=== PATIENT | female | born 1950 | race Caucasian/White ===

== ENCOUNTER 2016-12-23 08:44 | Inpatient (IN) ==
[2016-12-23] MEDS ORDERED: NS 1,000 ML IV ONE (09:15)
--- NOTE | 2016-12-23 09:22 | PROVIDER DOCUMENTATION ---
HPI-Neurological Disorder - General Chief Complaint: Altered Mental Status Stated Complaint: AMS Time Seen by Provider: 12/23/16 08:57 Source: patient, family Allergies/Adverse Reactions: Patient Allergies Allergy/AdvReac Type Severity Reaction Status Date / Time codeine [Codeine] Allergy NAUSEA/VOMI Verified 12/23/16 08:59 TING Home Medications: Home Medication List Medication Instructions Recorded Confirmed Last Taken Type Allopurinol [Zyloprim] 300 mg PO QAM 12/07/12 12/23/16 12/22/16 History Aspirin 81 mg PO BID 12/07/12 12/23/16 12/22/16 History Carvedilol [Coreg] 25 mg PO BID 12/07/12 12/23/16 12/22/16 History Cyclobenzaprine [Flexeril] 10 mg PO HS 12/07/12 12/23/16 12/22/16 History Doxepin [Sinequan] 100 mg PO DAILY 12/07/12 12/23/16 12/22/16 History Enalapril Maleate [Vasotec] 2.5 mg PO BID 12/07/12 12/23/16 12/22/16 History Folic Acid 800 gm MC DAILY 12/07/12 12/23/16 12/22/16 History Glimepiride [Amaryl] 4 mg PO BID 12/07/12 12/23/16 12/22/16 History Isosorbide Dinitrate 20 mg PO HS 12/07/12 12/23/16 12/22/16 History Lamotrigine [Lamictal] 100 mg PO QHS 12/07/12 12/23/16 12/22/16 History Meloxicam [Mobic] 7.5 mg PO DAILY 12/07/12 12/23/16 12/22/16 History Metformin [Glucophage] 500 mg PO BID CC 12/07/12 12/23/16 12/22/16 History NPH, Human Insulin Isophane 68 unit SQ BID 12/07/12 12/23/16 12/22/16 History [Novolin N] [place]-3/Dha/Epa/Fish Oil [[place]-3 1,200 mg PO BID 12/07/12 12/23/16 12/22/16 History Fish Oil 1,200 mg Sfgl] Paroxetine [Paxil] 20 mg PO DAILY 12/07/12 12/23/16 12/22/16 History Pioglitazone HCl [Actos] 45 mg PO DAILY 12/07/12 12/23/16 12/22/16 History Ziprasidone [Geodon] 80 mg PO QPM 12/07/12 12/23/16 12/22/16 History Bupropion HCl [Wellbutrin Xl] 300 mg PO DAILY 10/24/14 12/23/16 12/22/16 History Bupropion S.r. [Wellbutrin Sr] 150 mg PO DAILY 10/24/14 12/23/16 12/22/16 History Clobetasol Propionate/Emoll 1 applicatn TP BID PRN 10/24/14 12/23/16 12/22/16 History [Clobetasol Emollient 0.05% Crm] Digoxin 250 mcg PO DAILY 10/24/14 12/23/16 12/22/16 History Gabapentin [Neurontin] 300 mg PO TID 10/24/14 12/23/16 12/22/16 History Mirtazapine [Remeron] 15 mg PO QHS 10/24/14 12/23/16 12/22/16 History Omeprazole [Prilosec] 20 mg PO DAILY@0700 10/24/14 12/23/16 12/22/16 History Alprazolam [Xanax] 1 mg PO QHS 11/28/15 12/23/16 12/22/16 History Calcium Citrate 630 mg MC DAILY 11/28/15 12/23/16 12/22/16 History Ezetimibe/Simvastatin [Vytorin 1 each PO DAILY 11/28/15 12/23/16 12/22/16 History 10-40 mg Tablet] Hydrocodone/Acetaminophen [[place] 1 each PO 4XDAY 11/28/15 12/23/16 12/22/16 History 7.5-325 Tablet] Multivitamins/Minerals [Centrum 1 each PO DAILY 11/28/15 12/23/16 12/22/16 History Silver] Furosemide 40 mg PO BID #60 12/03/15 12/23/16 12/22/16 Rx - History of Present Illness-Neuro Nature of Presenting Problem: Patient is a 66 y/o F that presents to the ER with 2 to 3 days of confusion, weakness. Patient's reports patient having more difficulty ambulating. He also reports confusion and urinary issues( not getting the whole stream out and hematuria for a few days). patient denies any cough/congestion, n/v/d, or chest pain. Patient's blood sugar register high per EMS Severity: reports: moderate Onset/Duration: reports: gradual, 2 days ago, 3 days ago Timing: reports: still present, improving Context: reports: falling, other (high blood sugar). denies: low blood sugar, recent infection, fever, impaired speech, paresthesia, facial droop Character of Altered Mental Status: reports: confused Any recent trauma/injury?: reports: none Character of Deficits: reports: new weakness, falling New weakness or altered sensation location:: reports: general (diffuse) Cognitive Baseline: alert, oriented x3 Gait Baseline: uses a walker Associated Symptoms: reports: confusion, weakness. denies: short of breath, headache, dizziness, fever/chills, loss of consciousness, nausea, seizures, sleepy, slurred speech, vomiting Recently seen or treated by another doctor?: No Review of Systems - Adult - REVIEW OF SYSTEMS - ADULT Constitutional: denies: chills, fever Eyes: denies: decreased vision, blurred vision, double vision Ears, Nose, Mouth & Throat: reports: no symptoms reported Cardiovascular: denies: chest pain, palpitations, syncope Respiratory: denies: cough, shortness of breath, wheezing Gastrointestinal: denies: abdominal pain, diarrhea, nausea, vomiting Genitourinary: reports: hesitency. denies: dysuria, frequency, urgency Musculoskeletal: denies: back pain, joint pain, neck pain Integumentary: reports: no symptoms reported Neurological: reports: other (ams, confusion). denies: dizziness/vertigo, headache/migraines, seizure Psychiatric: reports: no symptoms reported Endocrine: reports: no symptoms reported Hematologic/Lymphatic: reports: no symptoms reported Allergic/Immunologic: reports: no symptoms reported All Other Systems: Reviewed and Negative Past History - Adult - PAST MEDICAL HISTORY-ADULT Review of Records: reports: Old Records Reviewed, Nursing Assessment Review, Medications Reviewed Cardiovascular: reports: CAD, CHF, HTN, hyperlipidemia, [place] Musculoskeletal: reports: chronic pain, fibromyalgia, intervertebral disc disease Psychiatric: reports: bipolar, psychiatric problems Endocrine/Immune: reports: Diabetes Other Conditions: reports: psoriasis - PRIOR SURGERIES/PROCEDURES Surgical/Procedure History: reports: cholecystectomy, cardiac stent, breast ( biopsy), other (cataract) - IMMUNIZATION STATUS Childhood Immunizations: UTD Flu Vaccine: See Nurse Assessment - FAMILY HISTORY Family History: reviewed, not pertinent - SOCIAL HISTORY Smoking: quit greater than 1 year, cigarettes Living Situation: family Physical Exam- Neurological - Physical Exam-Neuro Exam Limited by: obesity Initial Vital Signs Reviewed: Yes General Appearance: alert, no apparent distress, obese Eye Exam: bilateral eye: normal inspection, PERRL HENMT: normocephalic/atraumatic, moist mucous membranes, normal ENT inspection Head Injury: no evidence of injury. negative: Talbot's Sign, ecchymosis, lacerations Neck: non-tender, full range of motion, normal inspection Respiratory: lungs clear, normal breath sounds, no respiratory distress, no accessory muscle use Cardiovascular: regular rate, rhythm, no edema, no murmur Abdominal Exam: normal bowel sounds, non tender, soft, no organomegaly, no pulsatile mass Extremity: normal inspection, no pedal edema, normal capillary refill, pelvis stable snailer Exam: normal hearing, normal speech, PERRL Motor/Sensory: no motor deficit, no sensory deficit Neurologic: snailer II-XII nml as tested, no motor/sensory deficits Integumentary: normal color, normal turgor, warm/dry Psych/Mental Status: normal mood/affect, normal thought content, normal thought process, oriented x 3 - Glascow Coma Scale Best Eye Response: (4) open spontaneously Best Verbal Response: (5) oriented Best Motor Response: (6) obeys commands Total Glascow Score: 15 Progress - PLAN OF CARE/RESULTS Progress/Plan/Lab Results: plan of care-labs, ekg, cxr, head ct, fluids 0942-due to abnormal abg, BiPap will be ordered for patient, RT called Vital Signs Temp Pulse Resp BP Pulse Ox 12/23/16 10:51 100 12/23/16 09:19 94 L 12/23/16 08:52 97.7 F 98 H 20 133/86 88 L codeine [Codeine] Allergy (Verified 12/23/16 08:59) NAUSEA/VOMITING Allopurinol [Zyloprim] 300 mg PO QAM 12/07/12 Aspirin 81 mg PO BID 12/07/12 Carvedilol [Coreg] 25 mg PO BID 12/07/12 Cyclobenzaprine [Flexeril] 10 mg PO HS 12/07/12 Doxepin [Sinequan] 100 mg PO DAILY 12/07/12 Enalapril Maleate [Vasotec] 2.5 mg PO BID 12/07/12 Folic Acid 800 gm MC DAILY 12/07/12 Glimepiride [Amaryl] 4 mg PO BID 12/07/12 Isosorbide Dinitrate 20 mg PO HS 12/07/12 Lamotrigine [Lamictal] 100 mg PO QHS 12/07/12 Meloxicam [Mobic] 7.5 mg PO DAILY 12/07/12 Metformin [Glucophage] 500 mg PO BID CC 12/07/12 NPH, Human Insulin Isophane [Novolin N] 68 unit SQ BID 12/07/12 Delphos-3/Dha/Epa/Fish Oil [[place]ph[place]-3 Fish Oil 1,200 mg Sfgl] 1,200 mg PO BID Paroxetine [Paxil] 20 mg PO DAILY 12/07/12 Pioglitazone HCl [Actos] 45 mg PO DAILY 12/07/12 Ziprasidone [Geodon] 80 mg PO QPM 12/07/12 Bupropion HCl [Wellbutrin Xl] 300 mg PO DAILY 10/24/14 Bupropion S.r. [Wellbutrin Sr] 150 mg PO DAILY 10/24/14 Clobetasol Propionate/Emoll [Clobetasol Emollient 0.05% Crm] 1 applicatn TP BID PRN 10/24/14 Digoxin 250 mcg PO DAILY 10/24/14 Gabapentin [Neurontin] 300 mg PO TID 10/24/14 Mirtazapine [Remeron] 15 mg PO QHS 10/24/14 Omeprazole [Prilosec] 20 mg PO DAILY@0700 10/24/14 Alprazolam [Xanax] 1 mg PO QHS 11/28/15 Calcium Citrate 630 mg MC DAILY 11/28/15 Ezetimibe/Simvastatin [Vytorin 10-40 mg Tablet] 1 each PO DAILY 11/28/15 Hydrocodone/Acetaminophen [[place] 7.5-325 Tablet] 1 each PO 4XDAY 11/28/15 Multivitamins/Minerals [Centrum Silver] 1 each PO DAILY 11/28/15 Furosemide 40 mg PO BID #60 12/03/15 I&O 12/22/16 12/23/16 12/24/16 06:59 06:59 06:59 Output Total 25 Balance -25 Laboratory 12/23/16 12/23/16 12/23/16 09:50 09:50 09:45 WBC RBC Hgb Hct MCV MCH MCHC RDW Std Deviation Plt Count MPV Immature Gran % (Auto) Neut % (Auto) Lymph % (Auto) [place] % (Auto) Eos % (Auto) Baso % (Auto) Immature Gran # (Auto) Neut # (Auto) Lymph # (Auto) [place] # (Auto) Eos # (Auto) Baso # (Auto) PT INR PTT (Actin FS) Specimen Type Sample Site pH pCO2 pO2 HCO3 Base Excess Oxyhemoglobin ABG O2 Sat (Calculated) ABG O2 Saturation ABG Carboxyhemoglobin ABG Methemoglobin Yaniv Test Total Hemoglobin Lactate Liter Flow Blood Gas Modality Sodium Potassium Chloride Carbon Dioxide Anion Gap BUN Creatinine Estimated GFR/1.73 m2 BUN/Creatinine Ratio Glucose POC Glucose Calculated Osmolality Calcium Magnesium Total Bilirubin AST ALT Alkaline Phosphatase Creatine Kinase Troponin T < 0.010 [id number] Pept Total Protein Albumin Globulin Albumin/Globulin Ratio Lipase Urine Source CLEAN CATCH Urine Color YELLOW Urine Turbidity CLEAR Urine pH 6.5 Ur Specific [place] 1.011 Urine Protein TRACE A Ur Glucose (Stick) NEGATIVE Ur Ketones (Stick) NEGATIVE Urine Blood NEGATIVE Urine Nitrite NEGATIVE Urine Bilirubin NEGATIVE Urobilinogen Dipstick NORMAL Urine Leukocytes LARGE A Urine WBC (Auto) TNTC A Urine RBC (Auto) <10 U Epithel Cells (Auto) >10 A Urine Bacteria (Auto) NEGATIVE Urine Opiates Screen NONE DETECTED Ur Oxycodone Screen PRESUMPTIVE POSITIVE A Ur Methadone, Qual NONE DETECTED Ur Barbiturates Screen NONE DETECTED Ur Phencyclidine Scrn NONE DETECTED Ur Amphetamines Screen NONE DETECTED U Benzodiazepines Scrn PRESUMPTIVE POSITIVE A Urine Cocaine Screen NONE DETECTED U Cannabinoids Screen NONE DETECTED Plasma/Serum Ethyl Alc 12/23/16 12/23/16 12/23/16 09:45 09:45 09:45 WBC 4.72 L RBC 3.77 L Hgb 11.7 L Hct 37.3 MCV 98.9 MCH 31.0 MCHC 31.4 L RDW Std Deviation 13.9 Plt Count 115 L MPV 9.7 Immature Gran % (Auto) 0.6 H Neut % (Auto) 50.5 Lymph % (Auto) 36.2 [place]son % (Auto) 9.3 Eos % (Auto) 3.0 Baso % (Auto) 0.4 Immature Gran # (Auto) 0.03 Neut # (Auto) 2.38 Lymph # (Auto) 1.71 Anson # (Auto) 0.44 Eos # (Auto) 0.14 Baso # (Auto) 0.02 PT 10.6 INR 1.04 PTT (Actin FS) 51.9 H Specimen Type Sample Site pH pCO2 pO2 HCO3 Base Excess Oxyhemoglobin ABG O2 Sat (Calculated) ABG O2 Saturation ABG Carboxyhemoglobin ABG Methemoglobin Yaniv Test Total Hemoglobin Lactate Liter Flow Blood Gas Modality Sodium Potassium Chloride Carbon Dioxide Anion Gap BUN Creatinine Estimated GFR/1.73 m2 BUN/Creatinine Ratio Glucose POC Glucose Calculated Osmolality Calcium Magnesium Total Bilirubin AST ALT Alkaline Phosphatase Creatine Kinase Troponin T [id number]-Xticplrizdl Pept Total Protein Albumin Globulin Albumin/Globulin Ratio Lipase Urine Source Urine Color Urine Turbidity Urine pH Ur Specific [place] Urine Protein Ur Glucose (Stick) Ur Ketones (Stick) Urine Blood Urine Nitrite Urine Bilirubin Urobilinogen Dipstick Urine Leukocytes Urine WBC (Auto) Urine RBC (Auto) U Epithel Cells (Auto) Urine Bacteria (Auto) Urine Opiates Screen Ur Oxycodone Screen Ur Methadone, Qual Ur Barbiturates Screen Ur Phencyclidine Scrn Ur Amphetamines Screen U Benzodiazepines Scrn Urine Cocaine Screen U Cannabinoids Screen Plasma/Serum Ethyl Alc 12/23/16 12/23/16 12/23/16 09:45 09:45 09:35 WBC RBC Hgb Hct MCV MCH MCHC RDW Std Deviation Plt Count MPV Immature Gran % (Auto) Neut % (Auto) Lymph % (Auto) [place]son % (Auto) Eos % (Auto) Baso % (Auto) Immature Gran # (Auto) Neut # (Auto) Lymph # (Auto) [place] # (Auto) Eos # (Auto) Baso # (Auto) PT INR PTT (Actin FS) Specimen Type ARTERIAL Sample Site R BRACHIAL pH 7.37 pCO2 64 H* pO2 67 HCO3 32.5 H Base Excess 9.8 H Oxyhemoglobin 92.5 L ABG O2 Sat (Calculated) 14.1 L ABG O2 Saturation 96.7 ABG Carboxyhemoglobin 3.10 H ABG Methemoglobin 1.2 Yaniv Test NO Total Hemoglobin 10.8 L Lactate 0.50 Liter Flow 2.0 Blood Gas Modality CANNULA Sodium 136 Potassium 5.4 H Chloride 96 L Carbon Dioxide 30 Anion Gap 10 BUN 20 Creatinine 1.3 H Estimated GFR/1.73 m2 41 BUN/Creatinine Ratio 15 Glucose 207 H POC Glucose Calculated Osmolality 281 Calcium 9.1 Magnesium 2.0 Total Bilirubin 0.26 AST 71 H ALT 138 H Alkaline Phosphatase 350 H Creatine Kinase 47 Troponin T [id number] Pept 526 H Total Protein 6.3 Albumin 3.1 L Globulin 3.2 Albumin/Globulin Ratio 1.0 Lipase 44 Urine Source Urine Color Urine Turbidity Urine pH Ur Specific [place] Urine Protein Ur Glucose (Stick) Ur Ketones (Stick) Urine Blood Urine Nitrite Urine Bilirubin Urobilinogen Dipstick Urine Leukocytes Urine WBC (Auto) Urine RBC (Auto) U Epithel Cells (Auto) Urine Bacteria (Auto) Urine Opiates Screen Ur Oxycodone Screen Ur Methadone, Qual Ur Barbiturates Screen Ur Phencyclidine Scrn Ur Amphetamines Screen U Benzodiazepines Scrn Urine Cocaine Screen U Cannabinoids Screen Plasma/Serum Ethyl Alc 12/23/16 08:51 WBC RBC Hgb Hct MCV MCH MCHC RDW Std Deviation Plt Count MPV Immature Gran % (Auto) Neut % (Auto) Lymph % (Auto) [place] % (Auto) Eos % (Auto) Baso % (Auto) Immature Gran # (Auto) Neut # (Auto) Lymph # (Auto) [place] # (Auto) Eos # (Auto) Baso # (Auto) PT INR PTT (Actin FS) Specimen Type Sample Site pH pCO2 pO2 HCO3 Base Excess Oxyhemoglobin ABG O2 Sat (Calculated) ABG O2 Saturation ABG Carboxyhemoglobin ABG Methemoglobin Yaniv Test Total Hemoglobin Lactate Liter Flow Blood Gas Modality Sodium Potassium Chloride Carbon Dioxide Anion Gap BUN Creatinine Estimated GFR/1.73 m2 BUN/Creatinine Ratio Glucose POC Glucose 239 H Calculated Osmolality Calcium Magnesium Total Bilirubin AST ALT Alkaline Phosphatase Creatine Kinase Troponin T [id number] Pept Total Protein Albumin Globulin Albumin/Globulin Ratio Lipase Urine Source Urine Color Urine Turbidity Urine pH Ur Specific [place] Urine Protein Ur Glucose (Stick) Ur Ketones (Stick) Urine Blood Urine Nitrite Urine Bilirubin Urobilinogen Dipstick Urine Leukocytes Urine WBC (Auto) Urine RBC (Auto) U Epithel Cells (Auto) Urine Bacteria (Auto) Urine Opiates Screen Ur Oxycodone Screen Ur Methadone, Qual Ur Barbiturates Screen Ur Phencyclidine Scrn Ur Amphetamines Screen U Benzodiazepines Scrn Urine Cocaine Screen U Cannabinoids Screen Plasma/Serum Ethyl Alc Orders Category Date Time Status Cardiac Monitoring DIRECTED Care 12/23/16 09:16 Active Finger Stick Blood Sugar (ED) DIRECTED Care 12/23/16 09:16 Active Oxygen Therapy- ED Nursing DIRECTED Care 12/23/16 09:16 Active Saline Loc NOW Care 12/23/16 09:16 Active CHEST-PORTABLE [RAD] Stat Exams 12/23/16 09:19 Draft HEAD W/O CONTRAST [CT] Stat Exams 12/23/16 09:20 Draft ABG [RESP] Routine Lab 12/23/16 09:35 Completed ALCOHOL BLOOD Stat Lab 12/23/16 09:45 Completed CBC WITH ELECTRONIC DIFF [HEME] Stat Lab 12/23/16 09:45 Completed CK PROFILE [SP CHEM] Stat Lab 12/23/16 09:45 Completed COMPREHENSIVE METABOLIC PANEL [CHEM] Stat Lab 12/23/16 09:45 Completed LIPASE [CHEM] Stat Lab 12/23/16 09:45 Completed MAGNESIUM [CHEM] Stat Lab 12/23/16 09:45 Completed PRO B-NATRIURETIC PEPTIDE Stat Lab 12/23/16 09:45 Completed PROTIME WITH INR [COAG] Stat Lab 12/23/16 09:45 Completed PTT [COAG] Stat Lab 12/23/16 09:45 Completed TROPONIN T Stat Lab 12/23/16 09:45 Completed URINALYSIS W/POSS RFLX CULT [URINALYSIS] Stat Lab 12/23/16 09:50 Completed URINE CULTURE [RM] Routine Lab 12/23/16 10:17 Received URINE DRUG SCREEN Stat Lab 12/23/16 09:50 Completed 0.9% Sodium Chloride Inj [Ns] 1,000 ml Med 12/23/16 09:15 Active IV 250 mls/hr CefTRIAXONE 1 GM/NS [Rocephin 1 gm/Ns] 50 ml Med 12/23/16 11:06 Discontinued IV NOW BIPAP Stat Oth 12/23/16 10:07 Active Pulse Oximetry Stat Oth 12/23/16 09:16 Completed EKG [EKG] Stat Ther 12/23/16 09:16 Ordered pt accepted to hospitalist service - XRAY 1 XRAY Study: Chest Impression: Abnormal XRAY Interpretation: nad, low lung volumes, bibasilar crowding - CT/MRI 1 CT Study: Head Impression: Abnormal CT Results: chronic white matter changes, no acute disease - CONSULTS/PCP/HOSPITALIST Notification #1 *Consult/PCP/Hospitalist*: ( occupational therapy aide for hospitalist) Time Discussed: 11:54 Reason/Comments: AMS, UTI, CO2 retention Consult Disposition: Will see in ED, Admit Departure - Departure Time of Disposition Order: 11:56 DIAGNOSIS: CO2 retention UTI (urinary tract infection) Qualifiers: Urinary tract infection type: acute cystitis Hematuria presence: without hematuria Qualified Code(s): N30.00 - Acute cystitis without hematuria Altered mental status Qualifiers: Altered mental status type: unspecified Qualified Code(s): R41.82 - Altered mental status, unspecified Disposition: ADMITTED INPATIENT 09 Certified Medical Emergency: Emergent Condition: Stable - Critical Care Note Total Time (mins): 45 Critical Care Statement: This patient required my direct personal management to treat or rule out processes, the absence of which, could potentiallly result in sudden, clinically significant life or limb threatening deterioration. Attestation - Scribe Verification/Attestation Scribe:: Jerry Arita Acting as Scribe for:: Cristian Biswas Scribe documention review:: This chart was documented by a scribe and accurately reflects the service the provider performed and the decisions made by the provider. Physician Attestation - Physician Attestation I, the provider, attest to the following statement:: Cristian Biswas Physician documentation Attestation:: This documentation recorded by the scribe accurately reflects the service I personally performed and the decisions made by me.
[2016-12-23 09:41] LABS: ALLEN TEST NO; BE 9.8 mmoll (-3.0-3.0); BLOOD TYPE ARTERIAL; DRAW SITE R BRACHIAL; METHB 1.2 % (0.0-1.5); O2(CT) 14.1 mL/dL (15.0-23.0); PO2(98.6) 67 mmHg (60-100); SAMPLE BLOOD; SAO2 96.7 % (95.0-100.0); THB 10.8 g/dL (11.5-17.4); pH(98.6) 7.37 (7.35-7.45)
[2016-12-23 09:43] LABS: MODALITY CANNULA; PCO2(98.6) 64 mmHg (35-45)
[2016-12-23 09:57] LABS: MANUAL DIFF NEEDED? NO
[2016-12-23 10:00] LABS: URINE MICRO REVIEW NEEDED? NO; URINE SOURCE CLEAN CATCH
[2016-12-23 10:01] LABS: BASO% 0.4 % (0.0-0.8); EOS# 0.14 X1000 (0.0-0.7); HEMATOCRIT 37.3 % (37.0-47.0); HEMOGLOBIN 11.7 g/dL (12.0-16.0); IMM GRAN# 0.03 X1000 (0.0-0.04); IMM GRAN% 0.6 % (0.0-0.5); LYMPH# 1.71 X1000 (1.2-3.4); LYMPH% 36.2 % (20.5-51.1); MCHC 31.4 g/dL (33-37); MCV 98.9 FL (81-99); MONO# 0.44 X1000 (0.11-0.59); MONO% 9.3 % (1.7-9.3); MPV 9.7 FL (7.4-10.4); NEUT% 50.5 % (42.2-75.2); PLT 115 X1000 (130-400); RBC 3.77 XMIL (4.2-5.4)
[2016-12-23 10:09] LABS: BILIRUBIN URINE NEGATIVE (NEGATIVE); BLOOD URINE NEGATIVE (NEGATIVE); COLOR YELLOW; GLUCOSE URINE NEGATIVE (NEGATIVE); LEUKOCYTES URINE LARGE (NEGATIVE); NITRITE URINE NEGATIVE (NEGATIVE); PH URINE 6.5; PROTEIN URINE TRACE mg/dL (NEGATIVE); SP GRAVITY URINE 1.011; TURBIDITY URINE CLEAR (CLEAR); UROBILINOGEN URINE NORMAL (NORMAL)
[2016-12-23 10:10] LABS: UR EPITHELIAL CELLS >10 /HPF (<10); URINE BACTERIA NEGATIVE /HPF; URINE CULTURE NEEDED? YES; URINE RBC <10 /HPF (<10); URINE WBC TNTC /HPF (<10)
[2016-12-23 10:14] LABS: INR 1.04; PROTIME 10.6 Seconds (9.2-11.7); PTT 51.9 Seconds (22.0-36.0)
[2016-12-23 10:20] LABS: ALBUMIN 3.1 g/dL (3.5-5.0); CALCIUM 9.1 mg/dL (8.8-10.2); POTASSIUM 5.4 mmol/L (3.5-5.1); TOTAL BILIRUBIN 0.26 mg/dL (0.20-1.00); TOTAL PROTEIN 6.3 g/dL (6.3-8.3)
--- NOTE | 2016-12-23 10:54 | Diag Imaging Result Document ---
PROCEDURE NAME: HEAD W/O CONTRAST - 12/23/[address], 12/23/2016: A CT dose reduction protocol was used. COMPARISON: 11/28/2015. FINDINGS: The ventricles and sulci are normal in size and contour. There is some mild patchy deep white matter lucency similar to prior exams compatible with chronic microvascular disease. No intracranial mass or hemorrhage. The skull is intact. The sinuses, mastoids , and middle ears are clear. IMPRESSION: No specific acute disease. [facility]
--- NOTE | 2016-12-23 11:02 | Diag Imaging Result Document ---
PROCEDURE NAME: CHEST-PORTABLE - 12/23/2016 PORTABLE CHEST X-RAY: COMPARISON: 12/01/2015. FINDINGS: Lung volumes are low with some bibasilar crowding. No obvious infiltrates. Heart size is top normal. No pneumothorax or large effusion. IMPRESSION: No acute disease.
[2016-12-23] MEDS ORDERED: ROCEPHIN 1 GM/NS 50 ML IV ONE (11:06)
[2016-12-23 11:19] LABS: UR AMPHETAMINES QUAL NONE DETECTED (NONE DETECT); UR BARBITUATES QUAL NONE DETECTED (NONE DETECT); UR BENZODIAZEPIN QUAL PRESUMPTIVE POSITIVE (NONE DETECT); UR CANNABINOIDS QUAL NONE DETECTED (NONE DETECT); UR COCAINE QUAL NONE DETECTED (NONE DETECT); UR METHADONE QUAL NONE DETECTED (NONE DETECT); UR OPIATES QUAL NONE DETECTED (NONE DETECT); UR OXYCODONE QUAL PRESUMPTIVE POSITIVE (NONE DETECT); UR PCP QUAL NONE DETECTED (NONE DETECT)
--- NOTE | 2016-12-23 15:00 | HISTORY AND PHYSICAL ---
PRIMARY CARE PROVIDER: Betsy Benedict. CHIEF COMPLAINT: Confusion with hallucinations, slurred speech, and shortness of breath. HISTORY OF PRESENT ILLNESS: Ms. Lety Allen is a 66-year-old female with a history of bipolar disorder, hypothyroidism, diabetes mellitus type 2, coronary artery disease, with what she states is frequent admissions for hypomagnesemia. Has been for the last couple of days been having increased confusion, slurred speech, hallucinations, and it got worse last night. She has also been having shortness of breath. Denies any drowsiness, nausea, vomiting, diarrhea. Denies fever or chills. So workup revealed that she has a CO2 level of 64 and that was on 2 L nasal cannula. They placed her on BiPAP. She states that she has never had a history of COPD, but has smoked 1 pack per day for 50 years and quit in 2001. She also states that in the past she has been admitted for confusion and altered mental status secondary to hypomagnesemia and it does show that she has had magnesium levels anywhere from 1.0 to 1.5 in the past, then on admit she is 2.0. Head CT was negative. Chest x-ray is also negative. Her white count is normal at 4000, so given elevated CO2 level, she is in for COPD exacerbation. This could be cause of confusion or it could be the multiple medications that she takes at home. She is on several medications, such Geodon, Paxil, doxepin, Wellbutrin, Remeron, Xanax, and Green[place]. Some of these medications may need to be titrated down. Will admit her to [facility] given her need for BiPAP, and consult Pulmonology. PAST MEDICAL HISTORY: Coronary artery disease with an ID in 2001 with 3 cardiac stent, diabetes mellitus type 2, hypertension, hyperlipidemia, fibromyalgia, bipolar disorder, hypothyroidism, now with a newly diagnosed COPD, gout, psoriasis, and questionable congestive heart failure, CKD stage 2. SURGICAL HISTORY: Cardiac stents x3 to the mid LAD and proximal LAD. Cholecystectomy. Back surgery, and right ankle pins. FAMILY HISTORY: Had a sister that from alcoholism. SOCIAL HISTORY: Quit smoking in 2001 but prior to that was a 1 pack per day smoker for 50+ years. She lives at home with her . Denies alcohol or illicit drug use. ALLERGIES: Are listed as codeine but the patient states she is not allergic to codeine, so no known drug allergies. HOME MEDICATIONS: Amaryl, aspirin, Coreg, Vasotec, Flexeril, folic acid, Geodon, Glucophage, isosorbide dinitrate, Lamictal, Mobic, NPH insulin, omega 3 fish oil, Paxil, Actos, Sinequan, allopurinol, clobetasol propionate emollient, digoxin, Remeron, Neurontin, Prilosec, Wellbutrin, Xanax, calcium citrate, Centrum Silver multivitamin, Vytorin, Greencastle 7.5, and furosemide. REVIEW OF SYSTEMS: Fourteen point review of systems are complete and all were negative except those mentioned above in HPI. LABORATORY DATA: White blood cells 4000, hemoglobin 11, hematocrit 37, platelet count 115,000, INR 1.04, PTT 51.9. ABGs on 2 L; 7.37 pH, CO2 64, PO2 67, base excess 9, oxyhemoglobin 92%, lactate 0.5. Sodium 136, potassium 5.4, BUN 20, creatinine is 1.3. Glucose 207, calcium 9.1, magnesium 2.0, total bilirubin 0.26, AST 71, ALT 138. CK 47, troponin 0.01, proBNP 526. Albumin 3.1. Urinalysis; trace protein, large leukocytes, too numerous to count white blood cells, negative for bacteria. Urine drug screen positive for oxycodone and benzodiazepines which she has prescriptions for. IMAGING: Chest x-ray negative. Head CT negative. PHYSICAL EXAMINATION: VITAL SIGNS: Temperature 97.7, heart rate 90, respiratory rate 18, blood pressure 157/93, O2 saturation 100% on BiPAP. GENERAL APPEARANCE: Ms. Allen is a 66-year-old female. She is in no acute distress but currently on BiPAP. She is able answer all questions appropriately. HEENT: Atraumatic, normocephalic. Pupils equal, round, reactive to light. Her extraocular movements were intact. Mucous membranes were dry. NECK: No JVD or carotid bruits. CARDIOVASCULAR: S1, S2. Regular rate and rhythm. No rubs, gallops, or murmurs. PULMONARY: She is actually clear to auscultate. Bilateral breath sounds, decreased in the bases. No accessory muscle use. Mild prolonged expiration. Currently on BiPAP GASTROINTESTINAL: Soft, nontender, nondistended. Positive bowel sounds x4. She is obese. EXTREMITIES: No edema noted. +2 dorsalis and radial pulses. NEUROLOGIC: She is oriented x3. Moved all extremities equally. SKIN: Warm, dry, intact. She did have a small abrasion to the left forearm that she had a Band- Aid on. ASSESSMENT AND PLAN: 1. Newly diagnosed chronic obstructive pulmonary disease exacerbation and acute hypercarbic respiratory failure. Continue with BiPAP. She has received IV steroids, prophylactic Rocephin, pulmonary consult. Will do albuterol and Atrovent nebulizers with acetylcysteine and budesonide neb, and aggressive pulmonary toilet. 2. Confusion. She does a history of bipolar and takes several medications, some of these may need to be down titrated. 3. History of coronary artery disease. No current complications. 4. Gout. Continue home medications. 5. Psoriasis. Continue home medication. 6. Hyperlipidemia. Continue statin. 7. She does have some transaminitis but she will receive IV fluid hydration for now. 8. Hypertension. Continue home medications. 9. Hypothyroidism. This is questionable. She is not on any medications for this, so we will do a TSH, T4. 10. Questionable history of congestive heart failure. She is on several medications that would be for it, like digoxin. This could be heart rate control but she did not mention that she has a heart rate problem. She is on isosorbide, this could be for history of chest pain. She is on Coreg and Vasotec. Looking back for a history of a recent echocardiogram she had performed on November of last year, mild right atrium enlargement, mild to moderate tricuspid regurgitation, normal systolic function with an ejection fraction of 50%-55%, trace pulmonic insufficiency, mild mitral regurgitation, apical hypokinesis. We will go ahead and repeat an echocardiogram since she is on all of those medications and has been a little over a year. 11. Deep venous thrombosis prophylaxis, Lovenox. 12. Gastrointestinal prophylaxis, proton pump inhibitor. Dictated by YING Green for Alexei Brown MD
[2016-12-23] MEDS ORDERED: NEURONTIN PO SCH (15:32)
[2016-12-23] MEDS ORDERED: NORCO-7.5 PO SCH (15:32)
[2016-12-23] MEDS ORDERED: TYLENOL PO PRN (15:32)
[2016-12-23] MEDS ORDERED: TEMOVATE 0.05% CREAM TOP PRN (15:32)
[2016-12-23] MEDS: NS 1,000 ML IV SCH (17:33)
[2016-12-23] MEDS: NEURONTIN PO SCH ×2 (17:34→21:49)
[2016-12-23] MEDS: PERCOCET-5 PO SCH (17:34)
[2016-12-23] MEDS: HUMULIN N SUBQ SCH (17:34)
[2016-12-23] MEDS: HUMULIN R SUBQ SCH ×2 (17:36→21:49)
[2016-12-23 17:49] LABS: ALLEN TEST NO; BE 9.1 mmoll (-3.0-3.0); BLOOD TYPE ARTERIAL; DRAW SITE R BRACHIAL; METHB 1.6 % (0.0-1.5); O2(CT) 13.8 mL/dL (15.0-23.0); PO2(98.6) 58 mmHg (60-100); SAMPLE BLOOD; SAO2 94.9 % (95.0-100.0); THB 10.7 g/dL (11.5-17.4); pH(98.6) 7.44 (7.35-7.45)
[2016-12-23 17:50] LABS: PCO2(98.6) 51 mmHg (35-45)
[2016-12-23] MEDS: PULMICORT INH SCH (20:05)
[2016-12-23] MEDS: DUONEB (A & A) INH SCH ×2 (20:05→23:09)
[2016-12-23] MEDS: MUCOMYST 20% INH SCH (20:05)
[2016-12-23] MEDS ORDERED: HUMULIN N SUBQ SCH (21:00)
[2016-12-23] MEDS: XANAX PO SCH (21:47)
[2016-12-23] MEDS: ZOCOR PO SCH (21:47)
[2016-12-23] MEDS: LAMICTAL PO SCH (21:49)
[2016-12-23] MEDS: REMERON PO SCH (21:49)
[2016-12-23] MEDS: ISORDIL PO SCH (21:49)
[2016-12-23] MEDS: VASOTEC PO SCH (21:49)
[2016-12-23] MEDS: FLEXERIL PO SCH (21:50)
[2016-12-23] MEDS: ASPIRIN PO SCH (21:50)
[2016-12-23] MEDS: FISH OIL CONCENTRATE PO SCH (21:50)
[2016-12-23] MEDS: GEODON PO SCH (21:50)
[2016-12-23] MEDS: COREG PO SCH (21:50)
[2016-12-24] MEDS: DUONEB (A & A) INH SCH ×6 (03:41→23:13)
[2016-12-24 05:33] LABS: BASO% 0.2 % (0.0-0.8); EOS# 0.32 X1000 (0.0-0.7); EOS% 6.8 % (0.0-10.0); HEMATOCRIT 37.1 % (37.0-47.0); HEMOGLOBIN 11.7 g/dL (12.0-16.0); IMM GRAN# 0.03 X1000 (0.0-0.04); IMM GRAN% 0.6 % (0.0-0.5); LYMPH# 2.21 X1000 (1.2-3.4); LYMPH% 46.6 % (20.5-51.1); MANUAL DIFF NEEDED? YES; MCH 31.3 PG (27-31); MCHC 31.5 g/dL (33-37); MCV 99.2 FL (81-99); MONO# 0.31 X1000 (0.11-0.59); MONO% 6.5 % (1.7-9.3); MPV 10.3 FL (7.4-10.4); NEUT% 39.3 % (42.2-75.2); PLT 148 X1000 (130-400); RBC 3.74 XMIL (4.2-5.4)
[2016-12-24 05:49] LABS: HEMOGLOBIN A1C 7.8 % (4.8-6.0)
[2016-12-24] MEDS: NS 1,000 ML IV SCH (05:51)
[2016-12-24 06:00] LABS: CALCIUM 8.8 mg/dL (8.8-10.2); POTASSIUM 4.8 mmol/L (3.5-5.1); TOTAL BILIRUBIN 0.22 mg/dL (0.20-1.00); TOTAL PROTEIN 6.5 g/dL (6.3-8.3)
[2016-12-24] MEDS: PROTONIX PO SCH (06:01)
[2016-12-24 06:03] LABS: BANDS 4 % (0-1); EOS 4 % (1-10); LYMPHS 40 % (21-51); MONO 4 % (1-9)
[2016-12-24] MEDS: HUMULIN R SUBQ SCH ×4 (06:26→22:53)
[2016-12-24 06:36] LABS: FREE T4 1.04 ng/dL (0.93-1.70)
[2016-12-24] MEDS: PULMICORT INH SCH ×2 (07:29→20:00)
[2016-12-24] MEDS: MUCOMYST 20% INH SCH ×2 (07:29→20:00)
--- NOTE | 2016-12-24 08:13 | ECHO REPORT ---
ORDER DATE: 12/23/2016 INTERPRETING PHYSICIAN: Dr. Higgins REFERRING PHYSICIAN: Hospitalist service. CLINICAL INDICATIONS: A 66-year-old female with shortness of breath. M-MODE MEASUREMENTS: Right ventricle: 3.5 cm. Left ventricle end diastole: 5.4 cm. Left ventricle end systole: 3.9 cm. Posterior wall: 1.0 cm. Interventricular septum: 1.0 cm. Left atrium: 4.7 cm. Aortic root: 3.5 cm. SUMMARY OF 2-DIMENSIONAL IMAGIN. The left ventricular chamber appears to be mildly to moderately enlarged. The left ventricular systolic function appears to be in the order of 46% to 50%. 2. There is anteroapical akinesis consistent with an old anteroapical myocardial infarction. 3. The right ventricle is moderately enlarged. 4. The aortic valve looks normal. There is a mild degree of thickening of the cusps. However, there is no stenosis nor regurgitation. 5. The mitral valve also shows some thickening of the leaflets. Color flow mapping shows a mild degree of regurgitation. Pulsed wave Doppler of mitral inflow shows a mild reversal of the E and the A wave. 6. The tissue Doppler of septal and lateral mitral annulus averages 6.5 cm. There is no definite diastolic dysfunction. The pulsed wave Doppler of pulmonary venous flow is normal. 7. The tricuspid valve shows a mild degree of regurgitation. The inferior vena cava is not dilated. The pulmonary pressure is estimated at 35 mmHg which is borderline elevated. 8. The pulmonic valve shows a mild degree of regurgitation. 9. There is no pericardial effusion, masses, nor thrombus. CONCLUSIONS: In summary, this study shows: 1. Mildly enlarged left ventricle with anteroapical akinesis with ejection fraction closer to 45%. This suggests an old anteroapical myocardial infarction. 2. Thickening of the mitral valve with a mild degree of regurgitation. 3. Diastolic function appears to be normal. 4. Pulmonary systolic pressure at the upper limits of normal. 5. There is also moderate enlargement of the right ventricle. Clinical correlation recommended.
[2016-12-24] MEDS ORDERED: PAXIL PO SCH (09:00)
[2016-12-24] MEDS ORDERED: WELLBUTRIN XL PO SCH (09:00)
[2016-12-24] MEDS ORDERED: VYTORIN 10/40 MG PO SCH (09:00)
[2016-12-24] MEDS: FISH OIL CONCENTRATE PO SCH ×2 (09:21→21:43)
[2016-12-24] MEDS: CALTRATE 600 PO SCH (09:21)
[2016-12-24] MEDS: CENTRUM SILVER PO SCH (09:21)
[2016-12-24] MEDS: FOLIC ACID PO SCH (09:21)
[2016-12-24] MEDS: VASOTEC PO SCH ×2 (09:22→22:57)
[2016-12-24] MEDS: NEURONTIN PO SCH ×4 (09:23→21:49)
[2016-12-24] MEDS: SINEQUAN PO SCH (09:23)
[2016-12-24] MEDS: CYMBALTA PO SCH (09:23)
[2016-12-24] MEDS: COREG PO SCH ×2 (09:24→21:44)
[2016-12-24] MEDS: ZYLOPRIM PO SCH (09:24)
[2016-12-24] MEDS: ASPIRIN PO SCH ×2 (09:24→21:50)
[2016-12-24] MEDS: LASIX PO SCH (09:25)
[2016-12-24] MEDS: LANOXIN PO SCH (09:25)
[2016-12-24] MEDS: MOBIC PO SCH (09:25)
[2016-12-24] MEDS: PERCOCET-5 PO SCH ×3 (09:26→17:34)
[2016-12-24] MEDS: LOVENOX SUBQ SCH (09:27)
[2016-12-24] MEDS: HUMULIN N SUBQ SCH ×2 (09:27→16:30)
[2016-12-24] MEDS: ROCEPHIN 1 GM/NS 50 ML IV SCH (10:56)
--- NOTE | 2016-12-24 14:51 | CONSULTATION ---
DATE OF CONSULTATION: 12/24/2016 REQUESTING PHYSICIAN: Dr. Chang. REASON FOR CONSULTATION: Respiratory failure. HISTORY OF PRESENT ILLNESS: Ms Allen is a 66-year-old white female with morbid obesity, 50 pack- year history for tobacco, and bipolar disorder, who was brought to the emergency room with several day history of dysuria and altered mental status. The patient had evidence of chronic hypercapnia respiratory failure and acute hypoxemic respiratory failure, and was initiated on BiPAP. The patient's urinalysis subsequently revealed nitrites along with too numerous to count white blood cells. The patient is now awake and alert. She reports she has previously been admitted to the hospital with altered mental status, and she had a urinary tract infection at that time. She made the observation that she believes that her bipolar medications are altered if she has an infectious process. She is currently awake, alert and conversant. She reports she has never had a sleep evaluation. She sees a production proofreader and her oxygen saturation routinely is 98% in the office. PAST MEDICAL HISTORY/PROBLEM LIST: 1. Coronary artery disease with 3 cardiac stent placements. 2. Morbid obesity. 3. Type 2 diabetes mellitus. 4. Hypertension. 5. Dyslipidemia. 6. Bipolar disorder. 7. Hypothyroidism. 8. History of gout. 9. Chronic kidney disease. 10. Status post cholecystectomy. 11. History of altered mental status with prior urinary tract infection as per above. SOCIAL HISTORY: Patient has a 50 pack-year history for tobacco, but has not smoked for several years. No alcohol use. FAMILY HISTORY: Positive for alcoholism. REVIEW OF SYSTEMS: Noted in the HPI. Clinically, she feels she is returning toward her baseline. PHYSICAL EXAMINATION: General: Reveals a morbidly obese, white female, with a BMI of 45, BP 126/74, heart rate 78, respiration rate 20, oxygen saturation 100% on 2 L nasal cannula. HEENT: Pupils are equal and reactive. Oropharynx is clear. Neck: Supple. Chest: Reveals minimal crackles in the lung bases. Cardiac Exam: Distant heart sounds. Normal S1, normal S2. Abdomen: Obese and soft without hepatosplenomegaly. Extremities: Reveal trace edema. LABORATORIES: Arterial blood gas on room air this morning reveals pH 7.44, pCO2 of 51, PO2 of 58. Urinalysis reveals trace protein, large amounts of leukocytes, too numerous to count white blood cells. X-RAYS: Chest x-ray reveals shallow inspiration with bibasilar crowding. IMPRESSION: A 66-year-old with morbid obesity, prior tobacco use, chronic hypercapnic respiratory failure, acute hypoxemic respiratory failure, who presented with a urinary tract infection, altered mental status. Clinically, she is awake and alert and follow commands. She appears to be at her baseline. RECOMMENDATIONS: 1. Obtain a PA and lateral chest x-ray for better visualization of the lung bases now that her mental status has resolved. 2. Oxygen as needed to maintain saturation greater than 90%. She may or may not require oxygen at the time of discharge. 3. Recommend weight loss as a long-term goal. 4. Recommend yearly influenza vaccines. 5. Recommend outpatient sleep evaluation.
--- NOTE | 2016-12-24 17:56 | PROGRESS NOTE ---
DATE: 12/24/2016 SUBJECTIVE: This patient looks much better today. She is not using a BiPAP machine. She is using on and off oxygen with nasal cannula, apparently this is her baseline. She came in yesterday because of altered mental status and shortness of breath. She has a UTI. Probably this patient was dehydrated and also this patient is taking a lot of medications. OBJECTIVE: Vital Signs: Temperature 98.7 degrees, pulse 92, respiratory rate 19, blood pressure 126/74, O2 saturation 97% on room air. HEENT: Head normocephalic. No trauma. PERRLA. Neck: Supple. No JVD. No masses. Cardiovascular: RRR. No murmurs. Abdomen: Soft, nontender, nondistended. No hepatosplenomegaly. Extremities: No edema. No clubbing. Neurological: The patient is alert and oriented x3. No focal neurological deficits. LABORATORY: WBC 4.7, hemoglobin 11.7, hematocrit 37.1, platelets 148,000. Sodium 142, potassium 4.8, chloride 100, bicarbonate 29, BUN 16, creatinine 1.1, glucose 102, calcium 8.8, hemoglobin A1c is 7.8. ASSESSMENT AND PLAN: 1. Altered mental status, resolved. Probably this was secondary to an infectious process and polypharmacy. At this moment this patient apparently is at her baseline. She has been answering all my questions and also we talked about all her medications and she has been very specifically about each 1 of then. Apparently also she has a nurse or PA that checks her medications regularly. 2. Dehydration resolved. 3. Urinary tract infection. So far culture has been negative. I will continue with the same antibiotics. 4. History of coronary artery disease/congestive heart failure. No current complications. Continue with the same management. 5. History of gout. Continue with medications. 6. Psoriasis. Continue with home medications. 7. Hyperlipidemia. Continue with statins. 8. Transaminitis. I will continue with the IV fluids, this is getting better. 9. Hypertension. Continue with home medication. This is stable. 10. Hypothyroidism. She is not on any medication for hypothyroidism. TSH is 2.6 and T4 is 1.0, I am not going to change or add any medication for this. 11. Deep vein thrombosis prophylaxis. Continue with Lovenox. 12. Gastrointestinal prophylaxis. Continue with PPI.
[2016-12-24] MEDS ORDERED: WELLBUTRIN PO SCH (21:00)
[2016-12-24] MEDS: LAMICTAL PO SCH (21:44)
[2016-12-24] MEDS: ISORDIL PO SCH (21:50)
[2016-12-24] MEDS: ZOCOR PO SCH (21:50)
[2016-12-24] MEDS: FLEXERIL PO SCH (21:50)
[2016-12-24] MEDS: XANAX PO SCH (21:50)
[2016-12-24] MEDS: GEODON PO SCH (21:50)
[2016-12-24] MEDS: REMERON PO SCH (22:56)
[2016-12-25] MEDS: NS 1,000 ML IV SCH ×2 (02:27→11:06)
[2016-12-25] MEDS: DUONEB (A & A) INH SCH ×3 (03:19→11:41)
[2016-12-25 06:25] LABS: MANUAL DIFF NEEDED? NO
[2016-12-25] MEDS: HUMULIN R SUBQ SCH ×2 (06:25→11:21)
[2016-12-25] MEDS: PROTONIX PO SCH (06:27)
[2016-12-25 07:11] LABS: ALBUMIN 3.3 g/dL (3.5-5.0); CALCIUM 9.6 mg/dL (8.8-10.2); POTASSIUM 4.6 mmol/L (3.5-5.1); TOTAL BILIRUBIN 0.21 mg/dL (0.20-1.00); TOTAL PROTEIN 6.1 g/dL (6.3-8.3)
[2016-12-25 07:49] LABS: BASO% 0.2 % (0.0-0.8); EOS# 0.13 X1000 (0.0-0.7); EOS% 3.2 % (0.0-10.0); HEMATOCRIT 35.8 % (37.0-47.0); HEMOGLOBIN 11.5 g/dL (12.0-16.0); IMM GRAN# 0.02 X1000 (0.0-0.04); IMM GRAN% 0.5 % (0.0-0.5); LYMPH# 1.93 X1000 (1.2-3.4); LYMPH% 47.8 % (20.5-51.1); MCH 31.4 PG (27-31); MCHC 32.1 g/dL (33-37); MCV 97.8 FL (81-99); MONO# 0.29 X1000 (0.11-0.59); MONO% 7.2 % (1.7-9.3); MPV 10.5 FL (7.4-10.4); NEUT% 41.1 % (42.2-75.2); PLT 145 X1000 (130-400); RBC 3.66 XMIL (4.2-5.4)
[2016-12-25] MEDS: HUMULIN N SUBQ SCH (08:02)
[2016-12-25] MEDS: NEURONTIN PO SCH ×2 (08:02→13:59)
[2016-12-25] MEDS: MUCOMYST 20% INH SCH (08:05)
[2016-12-25] MEDS: PULMICORT INH SCH (08:05)
[2016-12-25] MEDS: FISH OIL CONCENTRATE PO SCH (08:10)
[2016-12-25] MEDS: LANOXIN PO SCH (08:10)
[2016-12-25] MEDS: COREG PO SCH (08:10)
[2016-12-25] MEDS: SINEQUAN PO SCH (08:11)
[2016-12-25] MEDS: ASPIRIN PO SCH (08:12)
[2016-12-25] MEDS: CALTRATE 600 PO SCH (08:12)
[2016-12-25] MEDS: VASOTEC PO SCH (08:12)
[2016-12-25] MEDS: FOLIC ACID PO SCH (08:12)
[2016-12-25] MEDS: CENTRUM SILVER PO SCH (08:12)
[2016-12-25] MEDS: LASIX PO SCH (08:12)
[2016-12-25] MEDS: ZYLOPRIM PO SCH (08:12)
[2016-12-25] MEDS: MOBIC PO SCH (08:13)
[2016-12-25] MEDS: CYMBALTA PO SCH (08:13)
[2016-12-25] MEDS: LOVENOX SUBQ SCH (08:13)
--- NOTE | 2016-12-25 08:48 | Diag Imaging Result Document ---
PROCEDURE NAME: CHEST-2 VIEWS - 12/25/2016 CHEST, 2 VIEWS: COMPARISON: 12/23/2016. FINDINGS: Heart size appears within normal limits. There is slight prominence of right infrahilar markings which is stable. The lungs, otherwise, appear clear. There is no pleural effusion or pneumothorax identified. There is exaggerated thoracic kyphosis noted. IMPRESSION: Stable slight prominence of right infrahilar markings. No other evidence of acute disease.
[2016-12-25] MEDS: PERCOCET-5 PO SCH ×2 (08:51→13:59)
[2016-12-25] MEDS ORDERED: WELLBUTRIN XL PO SCH (09:00)
[2016-12-25 11:03] VITALS: BP 110/97
[2016-12-25] MEDS: ROCEPHIN 1 GM/NS 50 ML IV SCH (11:22)
[2016-12-25] MEDS ORDERED: KEFLEX PO SCH (21:00)
--- NOTE | 2016-12-26 07:44 | DISCHARGE SUMMARY ---
ADMISSION DATE: 12/23/2016 DISCHARGE DATE: 12/25/2016 DISCHARGE DIAGNOSES: 1. Altered mental status/resolved. 2. Urinary tract infection. 3. Dehydration, resolved. 4. History of coronary artery disease/congestive heart failure. 5. History of gout. 6. Psoriasis. 7. Hyperlipidemia. 8. Transaminitis. 9. Hypertension. 10. Hypothyroidism. 11. Fibromyalgia. 12. Bipolar disorder. 13. Chronic kidney disease. HOSPITAL COURSE: This 66-year-old female with a history of bipolar disorder, hypothyroidism, diabetes, coronary artery disease, fibromyalgia, diabetes, hypertension, psoriasis, gout, heart failure, CKD, came to the emergency department with a chief complaint of shortness of breath and mental changes. She states that she has been having frequent admissions for hypomagnesemia. Two days previous to the admission, she had increased confusion, slurred speech, hallucination, and apparently everything got worse the night before admission. In the emergency department, she was found to have high CO2 levels, and she was placed on BiPAP. She had a history of smoking, but she quit in 2001, but she used to smoke for 50 years. This patient also has been taking a lot of medications for diabetes, high blood pressure, and psychiatry issues mostly. Probably this confusion also could be related with polypharmacy. The patient was hospitalized in the [facility] unit, and she recovered completely. The next day, she was basically at her baseline. She was found to have a urinary tract infection that was treated with antibiotics. Today, 12/25/2016, we decided to discharge this patient with strict followup by her primary care physician and, also, she will be discharged with antibiotics, and she will continue with the same medications that she was on at home. DISCHARGE PHYSICAL EXAMINATION: Vital Signs: Temperature 98.5 degrees, pulse 83, respiratory rate 20, blood pressure 110/97. O2 saturation 96% on room air. HEENT: Head normocephalic. No trauma. PERRLA. Neck: Supple. No JVD. No masses. Central trachea. Cardiovascular: RRR. No murmurs. Abdomen: Soft, nontender, nondistended. No hepatosplenomegaly. Obese. Extremities: No edema. No clubbing. No cyanosis. Neurologic: The patient is alert and oriented x3. No focal deficits. LABORATORY: WBC 4, hemoglobin 11.5, hematocrit 35.8, platelets 145,000. Sodium 143, potassium 4.6, chloride 100, bicarbonate 31. BUN 14, creatinine 1, glucose 166, albumin 3.3. DISCHARGE MEDICATIONS: 1. Simvastatin 40 mg p.o. at bedtime. 2. Cymbalta 60 mg p.o. daily. 3. Percocet 7.5 one tablet p.o. t.i.d. 4. Gabapentin 300 mg p.o. 4 times a day. 5. Furosemide 40 mg p.o. daily. 6. Humulin insulin 72 units q.a.m. and 42 units subcutaneously with supper. 7. Ziprasidone 80 mg p.o. every evening. 8. Omeprazole 20 mg p.o. daily. 9. Lissie-3, 1.2 g p.o. b.i.d. 10. Multivitamins 1 tablet p.o. daily. 11. Mirtazapine 50 mg p.o. at bedtime. 12. Meloxicam 7.5 mg p.o. daily. 13. Lamotrigine 100 mg p.o. at bedtime. 14. Isosorbide dinitrate 20 mg p.o. at bedtime. 15. Amaryl 4 mg p.o. b.i.d. 16. Folic acid 800 mcg daily. 17. Enalapril maleate 2.5 mg p.o. b.i.d. 18. Doxepin 100 mg p.o. daily. 19. Digoxin 250 mcg p.o. daily. 20. Flexeril 10 mg p.o. at bedtime. 21. Clobetasol 1 application topical b.i.d. p.r.n. 22. Carvedilol 25 mg p.o. b.i.d. 23. Calcium citrate 630 mg daily. 24. Bupropion 450 mg p.o. daily. 25. Aspirin 81 mg p.o. b.i.d. 26. Alprazolam 1 mg p.o. at bedtime. 27. Allopurinol 300 mg p.o. q.a.m. 28. Cephalexin 500 mg p.o. q.12 hours for 8 days.
== END 2016-12-25 14:33 | disposition home or self-care (01) | DRG 189 ==
LOC: EDBD → ED 08:44 → EDIPHOLD 13:23 → 3S 15:09 → 4N 12-24 13:31
PROVIDERS: ATTEND Internal Medicine
DX: J96.22 Acute and chronic respiratory failure with hypercapnia (principal); E11.22 Type 2 diabetes mellitus with diabetic chronic kidney disease; I13.0 Hypertensive heart and chronic kidney disease with heart failure and stage 1 through stage 4 chronic kidney disease, or unspecified chronic kidney disease; I50.9 Heart failure, unspecified; N39.0 Urinary tract infection, site not specified; J96.21 Acute and chronic respiratory failure with hypoxia; I25.10 Atherosclerotic heart disease of native coronary artery without angina pectoris; I25.2 Old myocardial infarction; N18.2 Chronic kidney disease, stage 2 (mild); E03.9 Hypothyroidism, unspecified; E78.5 Hyperlipidemia, unspecified; E86.0 Dehydration; M10.9 Gout, unspecified; M79.7 Fibromyalgia; S50.812A Abrasion of left forearm, initial encounter; L40.9 Psoriasis, unspecified; R41.82 Altered mental status, unspecified; F31.9 Bipolar disorder, unspecified; Z79.899 Other long term (current) drug therapy; Z79.82 Long term (current) use of aspirin; Z79.84 Long term (current) use of oral hypoglycemic drugs; Z79.4 Long term (current) use of insulin; Z79.1 Long term (current) use of non-steroidal anti-inflammatories (NSAID); Z87.891 Personal history of nicotine dependence; Z95.5 Presence of coronary angioplasty implant and graft; T38.3X5A Adverse effect of insulin and oral hypoglycemic [antidiabetic] drugs, initial encounter; T46.5X5A Adverse effect of other antihypertensive drugs, initial encounter; T43.505A Adverse effect of unspecified antipsychotics and neuroleptics, initial encounter; X58.XXXA Exposure to other specified factors, initial encounter
CPT/HCPCS: 70450; 71010; 71020; 80053; 80061; 81001; 82550; 82805; 82948; 83036; 83690; 83721; 83735; 83880; 84439; 84443; 84484; 85025; 85610; 85730; 87088; 93306; 94640; 94761; 94799; 96365; G0480; J0696; J1650; J7030; P9612; 80320; 80324; 80345; 80346; 80349; 80353; 80358; 80361; 80365; 83992

== ENCOUNTER 2017-05-20 19:09 | Inpatient (IN) ==
[2017-05-20 19:33] LABS: MANUAL DIFF NEEDED? NO
[2017-05-20 19:35] LABS: BASO% 0.6 % (0.0-0.8); EOS% 3.1 % (0.0-10.0); HEMATOCRIT 32.8 % (37.0-47.0); HEMOGLOBIN 10.6 g/dL (12.0-16.0); IMM GRAN# 0.03 X1000 (0.0-0.04); IMM GRAN% 0.9 % (0.0-0.5); LYMPH# 0.75 X1000 (1.2-3.4); LYMPH% 23.2 % (20.5-51.1); MCHC 32.3 g/dL (33-37); MCV 92.9 FL (81-99); MONO# 0.36 X1000 (0.11-0.59); MONO% 11.1 % (1.7-9.3); NEUT% 61.1 % (42.2-75.2); PLT 125 X1000 (130-400); RBC 3.53 XMIL (4.2-5.4)
--- NOTE | 2017-05-20 19:48 | Diag Imaging Result Doc PS360 ---
EXAM: HEAD W/O CONTRAST - 05/20/2017 HISTORY: stroke like symptoms TECHNIQUE: Dose reduction protocol COMPARISON: 04/19/2017 FINDINGS: There is no evidence of intracranial hemorrhage, mass effect, midline shift, or hydrocephalus. There are mild chronic microvascular ischemic changes. There is no indication of recent infarct, although acute infarcts may not be immediately visible. There is no skull fracture. IMPRESSION: No visible acute intracranial abnormality. No hemorrhage or mass effect. Electronically signed by Riccardo Irby 05/20/2017 7:46 PM
[2017-05-20 19:56] LABS: INR 1.06; PROTIME 11.2 Seconds (9.2-11.7)
[2017-05-20 20:03] LABS: ALBUMIN 3.5 g/dL (3.5-5.0); CALCIUM 9.7 mg/dL (8.8-10.2); POTASSIUM 5.6 mmol/L (3.5-5.1); TOTAL BILIRUBIN 0.22 mg/dL (0.20-1.00); TOTAL PROTEIN 6.6 g/dL (6.3-8.3)
[2017-05-20 20:08] LABS: PTT 51.1 Seconds (22.0-36.0)
--- NOTE | 2017-05-20 20:14 | Diag Imaging Result Doc PS360 ---
EXAM: ABD/PELVIS/PULM ARTERIES - 05/20/2017 HISTORY: hypoxia TECHNIQUE: With intravenous contrast. Multiple axial images. Reformatted coronal map and reformatted 3-D rotating minute images COMPARISON: None. FINDINGS: CT pulmonary angiogram there are no filling defects identified in the pulmonary arteries. There is no indication of aortic dissection. There is mild cardiomegaly. There are bilateral interstitial opacities and there are small right and tiny left pleural effusions, suspicious for pulmonary edema. There are some mildly prominent bilateral hilar mediastinal lymph nodes. There is questionable stenosis of the upper thoracic trachea versus transitory ineffective respiration. CT abdomen and pelvis: There is hepatosplenomegaly. There are no focal lesions identified in the liver or spleen. There is no adrenal mass identified. There is no pancreatic mass or inflammation identified. The gallbladder surgically absent. There is a 2.4 cm fat density lesion at the anterior mid right kidney, compatible with angiomyolipoma. There is artifact from motion at the lower right kidney. The bilateral kidneys otherwise enhance homogeneously. There is no hydronephrosis. There is mild retroperitoneal adenopathy. There is no abdominal aortic aneurysm identified. There are atherosclerotic calcifications noted. There are lumbar spine postsurgical changes noted. There is endplate destruction at L2-3 which is compatible with discitis. This was seen on the 04/19/2017 CT lumbar spine.9 There is no evidence of bowel obstruction. There is no abscess identified the soft tissue abdomen or pelvis. There is no free air identified. There is no substantial free fluid identified. There is a fat-containing hernia at the umbilicus. Images of pelvis otherwise show a 1.8 cm calcification the left side of the uterine fundus, compatible with fibroid. There is a 3.5 x 2.7 cm heterogeneous structure adjacent to the right posterior margin of the lower uterus of uncertain significance. The urinary bladder is moderately distended. IMPRESSION: CT pulmonary angiogram: No evidence of pulmonary embolism. Evidence of pulmonary edema/congestive heart failure. Mild hilar and mediastinal adenopathy. Questionable stenosis of upper thoracic trachea versus transitory appearance during respiration. CT abdomen and pelvis: Hepatosplenomegaly. Mild retroperitoneal adenopathy. Right renal angiomyolipoma. No hydronephrosis. No evidence of abdominal aortic aneurysm. L2-3 discitis as seen on the 04/19/2017 CT lumbar spine. No bowel obstruction. No free air. No substantial free fluid. Fat-containing umbilicus hernia. 1.8 cm calcified uterine fibroid. 3.5 x 2.7 cm heterogeneous structure adjacent to the right posterior lower uterine segment of uncertain significance. Electronically signed by Riccardo Irby 05/20/2017 8:12 PM
--- NOTE | 2017-05-20 20:16 | Diag Imaging Result Doc PS360 ---
EXAM: CHEST-PORTABLE - 05/20/2017 HISTORY: stroke like symptoms TECHNIQUE: Portable chest 1949 COMPARISON: 04/19/2017 FINDINGS: There is mild cardiomegaly. There is been development of bilateral interstitial infiltrates. There is no large pleural effusion or pneumothorax identified. Central venous catheter remains in place. IMPRESSION: Findings which are suggestive of pulmonary edema/congestive heart failure. Electronically signed by Riccardo Irby 05/20/2017 8:14 PM
[2017-05-20 20:35] LABS: URINE CULTURE NEEDED? NO; URINE MICRO REVIEW NEEDED? NO; URINE SOURCE CATH
[2017-05-20 20:38] LABS: ALLEN TEST YES; BE -2.8 mmoll (-3.0-3.0); BLOOD TYPE ARTERIAL; DRAW SITE R RADIAL; METHB 0.9 % (0.0-1.5); O2(CT) 12.6 mL/dL (15.0-23.0); PCO2(98.6) 45 mmHg (35-45); PO2(98.6) 119 mmHg (60-100); SAMPLE BLOOD; SAO2 99.5 % (95.0-100.0); THB 9.1 g/dL (11.5-17.4); pH(98.6) 7.32 (7.35-7.45)
[2017-05-20 20:39] LABS: BILIRUBIN URINE NEGATIVE (NEGATIVE); BLOOD URINE SMALL (NEGATIVE); COLOR YELLOW; GLUCOSE URINE NEGATIVE (NEGATIVE); LEUKOCYTES URINE NEGATIVE (NEGATIVE); NITRITE URINE NEGATIVE (NEGATIVE); PH URINE 5.5; PROTEIN URINE 100 mg/dL (NEGATIVE); SP GRAVITY URINE 1.019; TURBIDITY URINE HAZY (CLEAR); UROBILINOGEN URINE NORMAL (NORMAL)
[2017-05-20 20:39] LABS: MODALITY VENTIMASK
[2017-05-20 20:40] LABS: UR EPITHELIAL CELLS <10 /HPF (<10); URINE BACTERIA NEGATIVE /HPF; URINE WBC <10 /HPF (<10)
--- NOTE | 2017-05-20 20:47 | PROVIDER DOCUMENTATION ---
This chart was entered by Teja Hall Scribe, acting as scribe for Arie Carreno MD. HPI-General Adult - General Stated Complaint: HYPOGLYCEMIA Time Seen by Provider: 05/20/17 19:10 Source: family, EMS, old records Allergies/Adverse Reactions: Patient Allergies Allergy/AdvReac Type Severity Reaction Status Date / Time codeine [Codeine] Allergy NAUSEA/VOMI Verified 12/23/16 08:59 TING Home Medications: Home Medication List Medication Instructions Recorded Confirmed Last Taken Type Allopurinol [Zyloprim] 300 mg PO QAM 12/07/12 12/23/16 12/22/16 History Aspirin 81 mg PO BID 12/07/12 12/23/16 12/22/16 History Carvedilol [Coreg] 25 mg PO BID 12/07/12 12/23/16 12/22/16 History Cyclobenzaprine [Flexeril] 10 mg PO HS 12/07/12 12/23/16 12/22/16 History Doxepin [Sinequan] 100 mg PO DAILY 12/07/12 12/23/16 12/22/16 History Enalapril Maleate [Vasotec] 2.5 mg PO BID 12/07/12 12/23/16 12/22/16 History Folic Acid 800 gm MC DAILY 12/07/12 12/23/16 12/22/16 History Glimepiride [Amaryl] 4 mg PO BID 12/07/12 12/23/16 12/22/16 History Isosorbide Dinitrate 20 mg PO HS 12/07/12 12/23/16 12/22/16 History Lamotrigine [Lamictal] 100 mg PO QHS 12/07/12 12/23/16 12/22/16 History Meloxicam [Mobic] 7.5 mg PO DAILY 12/07/12 12/23/16 12/22/16 History [place]-3/Dha/Epa/Fish Oil [[place]-3 1,200 mg PO BID 12/07/12 12/23/16 12/22/16 History Fish Oil 1,200 mg Sfgl] Ziprasidone [Geodon] 80 mg PO QPM 12/07/12 12/23/16 12/22/16 History Bupropion HCl [Wellbutrin Xl] 300 mg PO DAILY 10/24/14 12/23/16 12/22/16 History Bupropion S.r. [Wellbutrin Sr] 150 mg PO DAILY 10/24/14 12/23/16 12/22/16 History Clobetasol Propionate/Emoll 1 applicatn TP BID PRN 10/24/14 12/23/16 12/22/16 History [Clobetasol Emollient 0.05% Crm] Digoxin 250 mcg PO DAILY 10/24/14 12/23/16 12/22/16 History Mirtazapine [Remeron] 15 mg PO QHS 10/24/14 12/23/16 12/22/16 History Omeprazole [Prilosec] 20 mg PO DAILY@0700 10/24/14 12/23/16 12/22/16 History Alprazolam [Xanax] 1 mg PO QHS 11/28/15 12/23/16 12/22/16 History Calcium Citrate 630 mg MC DAILY 11/28/15 12/23/16 12/22/16 History Multivitamins/Minerals [Centrum 1 each PO DAILY 11/28/15 12/23/16 12/22/16 History Silver] Duloxetine [Cymbalta] 60 mg PO DAILY 12/23/16 12/23/16 12/22/16 History Furosemide 40 mg PO DAILY 12/23/16 12/23/16 12/22/16 History Gabapentin [Neurontin] 300 mg PO 4XDAY 12/23/16 12/23/16 12/22/16 History NPH, Human Insulin Isophane 42 unit SQ WSUPPER 12/23/16 12/23/16 12/22/16 History [Humulin N] NPH, Human Insulin Isophane 72 unit SQ QAM 12/23/16 12/23/16 12/23/16 History [Humulin N] Oxycodone HCl/Acetaminophen 1 each PO TID 12/23/16 12/23/16 12/22/16 History [Percocet 7.5-325 mg Tablet] Simvastatin 40 mg PO QHS 12/23/16 12/23/16 12/22/16 History CephALEXIN [Keflex] 500 mg PO Q12HR #16 capsule 12/25/16 Unknown Rx - History of Present Illness -Gen Adult Nature of Presenting Problems: Pt is a 66 yowf who presents to ER via EMs with CC of hypoglycemia. EMS reports that pt had a blood sugar reading of "low," with B/S of 173 on arrival to ED. EMS also reports that pt had agonal breathing and is non-responsive. reports that pt was recently discharged from [facility] after being admitted for 11 days for "an infection in her spine." reports that pt had low back surgery 2 years ago, but they recently discovered pt had an infection. also reports that pt has fallen x3 today and has had diarrhea and increased fatigue today. reports pt is DNR. Old records indicate that pt was seen at this facility 1 month ago and transferred to [facility] for worsening osteomyelitis and was being treated with IV vancomycin and BID cefepine (pt was already receiving abx prior to arrival at this facility on 04/19/2017). Location of Pain/Injury: reports: generalized Pain Radiation: reports: no radiation Severity: reports: moderate Onset/Duration: reports: unsure, this morning Timing: reports: still present Associated Symptoms: reports: diarrhea, fatigue, weakness, other (agonal breathing; altered mental status) Similar Symptoms Previously?: No Recently seen or treated by another doctor?: Yes - Diabetes Related Context Context: reports: low blood sugar Review of Systems - Adult - REVIEW OF SYSTEMS - ADULT ROS:: ROS per family Constitutional: reports: fatique, other (low blood sugar). denies: chills, fever, night sweats, weight gain, weight loss Eyes: reports: no symptoms reported Ears, Nose, Mouth & Throat: reports: no symptoms reported Cardiovascular: reports: no symptoms reported Respiratory: reports: other (agonal breathing). denies: chronic cough, cough, dyspnea on exertion, excessive sputum production, hemoptysis, pleurisy, shortness of breath, wheezing Gastrointestinal: reports: diarrhea. denies: abdominal pain, hematemesis, constipation, difficulty swallowing, frequent heartburn, nausea, poor appetite, rectal bleeding, vomiting Genitourinary: reports: no symptoms reported Musculoskeletal: reports: no symptoms reported Integumentary: reports: no symptoms reported Neurological: reports: dizziness/vertigo, loss of balance (fall x3 today). denies: ataxia, headache/migraines, numbness, paresthesia, seizure, slurred speech, syncope, tremors Psychiatric: reports: no symptoms reported Endocrine: reports: no symptoms reported Hematologic/Lymphatic: reports: no symptoms reported Allergic/Immunologic: reports: no symptoms reported All Other Systems: Reviewed and Negative Past History - Adult - PAST MEDICAL HISTORY-ADULT Review of Records: reports: Nursing Assessment Review, Medications Reviewed Cardiovascular: reports: CAD, CHF, HTN, hyperlipidemia, [place] Musculoskeletal: reports: chronic pain, fibromyalgia, intervertebral disc disease Psychiatric: reports: bipolar, psychiatric problems Endocrine/Immune: reports: Diabetes Other Conditions: reports: psoriasis - PRIOR SURGERIES/PROCEDURES Surgical/Procedure History: reports: cholecystectomy, cardiac stent, breast ( biopsy), other (cataract) - PRIOR HOSPITALIZATIONS Prior Hospitalizations: reports: none - IMMUNIZATION STATUS Childhood Immunizations: UTD, See Nurse Assessment Flu Vaccine: See Nurse Assessment Physical Exam-General - PHYSICAL EXAM-ADULT Initial Vital Signs Reviewed: Yes - CONSTITUTIONAL General Appearance: moderate distress, obese, other (non-responsive) - EYES Eyes: pink conjunctivae, other (Right pupil dilated more than left; fixed gaze) - RESPIRATORY Respiratory: chest non-tender, lungs clear, normal breath sounds, no pleuratic chest pain, no accessory muscle use, increased rate. negative: no respiratory distress, respiratory distress, decreased breath sounds, accessory muscle use, wheezing - CARDIOVASCULAR Cardiovascular: normal peripheral pulses, regular rate, rhythm. negative: bradycardia, tachycardia, irregularly irregular - GASTROINTESTINAL (ABDOMEN) Abdominal Exam: normal bowel sounds, non tender, soft, no organomegaly, no pulsatile mass - PSYCHIATRIC Psych/Mental Status: other (non-responsive). negative: normal mood/affect, normal thought content, normal thought process, oriented x 3 Progress - PLAN OF CARE/RESULTS Progress/Plan/Lab Results: Vital Signs - 8 hr 05/20/17 19:14 Temperature 93.9 F L Pulse Rate 87 Respiratory Rate 27 H Blood Pressure 181/91 O2 Sat by Pulse Oximetry 91 L Orders Category Date Time Status Cardiac Monitoring DIRECTED Care 05/20/17 19:13 Active Finger Stick Blood Sugar (ED) DIRECTED Care 05/20/17 19:13 Active Misc. NRSG Communication Order DIRECTED Care 05/20/17 19:13 Active Saline Loc NOW Care 05/20/17 19:13 Active CHEST-PORTABLE [RAD] Stat Exams 05/20/17 19:13 Ordered HEAD W/O CONTRAST [CT] Stat Exams 05/20/17 19:13 Ordered ABG [RESP] Routine Lab 05/20/17 19:15 Ordered CBC WITH ELECTRONIC DIFF [HEME] Stat Lab 05/20/17 19:13 Uncollected COMPREHENSIVE METABOLIC PANEL [CHEM] Stat Lab 05/20/17 19:13 Uncollected PROTIME WITH INR [COAG] Stat Lab 05/20/17 19:13 Uncollected PTT [COAG] Stat Lab 05/20/17 19:13 Uncollected TROPONIN T Stat Lab 05/20/17 19:13 Uncollected URINALYSIS W/POSS RFLX CULT-1 [URINALYSIS] Stat Lab 05/20/17 19:13 Uncollected URINE DRUG SCREEN Stat Lab 05/20/17 19:13 Uncollected EKG [EKG] Stat Ther 05/20/17 19:13 Ordered Result Diagrams: 05/20/17 19:10 05/20/17 19:10 - REASSESSMENT Reassessment #1 Time Reassessed: 20:26 Status: improving (Pt now A/O. Discussed results of pt's labs and POC to put pt on BiPaP and admit. Family at bedside verbally acknowledge and agree.) - EKG 1 Time of EKG reading by physician:: 20:46 EKG Read and Signed by:: Arie Carreno EKG Interpretation (*Must complete 3 of following elements*): Abnormal (Low voltage QRS; Septal infarct, age undetermined) Rate: 85 Rhythm: NSR - XRAY 1 XRAY: Bilateral XRAY Study: Chest Impression: See EMR Report (Findings which are suggestive of pulmonary edema/ CHF - Dr. Irby (Radiologist)) XRAY Interpretation: See report - CT/MRI 1 CT Study: Head Impression: See EMR Report (No visible acute intracranial abnormality. No hemorrhage or mass effect - Dr. Irby (Radiologist)) CT Results: See report 2 CT Study: Abdomen (Hepatosplenomegaly. Mild retroperitoneal adenopathy. Right renal angiomyolipoma. No hydro. No substanial free fluid. Fat comtaining umbilicus hernia. 1.8 cm calcified uterine fibroid. 3.5x2.7cm heterogenous structure adjacent to the right posterior lower uterine segment of uncertain significance. - Dr. Irby (Radiologist)), Angiogram (No evidence of pulmonary embolism. Evidence of pulmonary edema/CHF. Mild hilar and mediastinal adenopathy. Questionable stenosis of upper thoracic trachea vs. transitory appearance during respiration - Dr. Irby (Radiologist)), Pelvis Impression: See EMR Report CT Results: See report Departure - Departure Date of Disposition Decision: 05/20/17 Time of Disposition Decision: 20:47 DIAGNOSIS: Altered mental status, Acute exacerbation of CHF (congestive heart failure), ISAIAS (acute kidney injury), Hypoglycemia, Discitis of lumbar region Disposition: ADMITTED INPATIENT 09 Certified Medical Emergency: Emergent Condition: Fair Referrals and Follow-Ups: Betsy Benedict MD [Primary Care Provider] - - Critical Care Note This patient required my direct & personal management of CC.: No Attestation - Physician/ WENDY Attestation Patient care was provided by Advanced Practice Provider:: No The physician spent face to face time with patient:: Yes Advanced Practice Provider documentation review:: Supervising physician onsite and consulted in the evaluation and care of this patient. The physician did have a face to face encounter with the patient. This chart was documented by the indicated scribe, (Teja Hall, Alexander) and accurately reflects the services I performed and decisions made by me, Arie Cutler MD, as attested by the provider's signature.
[2017-05-20] MEDS ORDERED: D50W SYRINGE IV ONE (20:50)
[2017-05-20] MEDS ORDERED: D50W SYRINGE ONE (20:51)
[2017-05-20 20:56] LABS: UR AMPHETAMINES QUAL NONE DETECTED (NONE DETECT); UR BARBITUATES QUAL NONE DETECTED (NONE DETECT); UR BENZODIAZEPIN QUAL PRESUMPTIVE POSITIVE (NONE DETECT); UR CANNABINOIDS QUAL NONE DETECTED (NONE DETECT); UR COCAINE QUAL NONE DETECTED (NONE DETECT); UR METHADONE QUAL NONE DETECTED (NONE DETECT); UR OPIATES QUAL NONE DETECTED (NONE DETECT); UR OXYCODONE QUAL PRESUMPTIVE POSITIVE (NONE DETECT); UR PCP QUAL NONE DETECTED (NONE DETECT)
[2017-05-20] MEDS ORDERED: DUONEB (A & A) INH ONE (22:40)
[2017-05-20] MEDS ORDERED: LASIX IV ONE (22:40)
[2017-05-20] MEDS ORDERED: NITROGLYCERIN TOP SCH (23:00)
[2017-05-21] MEDS ORDERED: TYLENOL PR ONE (01:03)
[2017-05-21] MEDS ORDERED: SODIUM CHLORIDE 0.9% INJ ONE (01:03)
[2017-05-21] MEDS ORDERED: ASPIRIN PR ONE (01:03)
[2017-05-21] MEDS: LASIX IV SCH ×2 (02:29→13:17)
[2017-05-21] MEDS: DUONEB (A & A) INH SCH ×5 (03:46→19:33)
--- NOTE | 2017-05-21 03:51 | HISTORY AND PHYSICAL ---
HISTORY OF PRESENT ILLNESS: Ms. Lety Allen is a 66-year-old lady with a past medical history of type 2 diabetes mellitus, coronary artery disease, hypothyroidism, fibromyalgia, gout, psoriasis, COPD, and questionable congestive heart failure, who was last seen in our facility for diskitis, and was subsequently transferred to [facility], where she spent 11 days, IV antibiotic treatment initiation. Thereafter, since April 19, she has been on IV cefepime, and what I suspect may be vancomycin, which she took even up until yesterday. Her , who is at bedside, because the patient is very confused and lethargic, informed me that she has been having diarrhea since the onset of these antibiotics, but this has taken a turn for the worse over the last 1 week. Her stools have not been dark, nor bloody. No vomiting or abdominal pain per se. He noticed that over the last few days she has been having more shortness of breath, but today things got so bad that she was unable to walk and she fell down 3 times because her gait was severely ataxic. He denies any worsening of extremity swelling, facial swelling. He says his has been having a cough but it has been nonproductive, but no documented fever or chills. His has not had any change in her medication, and she has actually been compliant with the medications that she normally takes, which total between 26-28 tablets. Today, he called EMS because he could not arouse his , and she was severely lethargic. She was very confused. She said this morning she woke up, she was very confused also, but as the day wore on, she became extremely somnolent and subsequently almost unconscious. When the EMS team got there, they did not detect her blood sugar. They gave her 1-2 amps of D50, and brought her in for further evaluation. Despite receiving 2 amps of D50, the patient is still lethargic and somnolent. The spouse is not aware of whether his 's urinary output has declined. Currently, patient is still lethargic and barely responsive. She is on the BiPAP machine. Her blood sugars are in the 120s-180 range, yet she is still somnolent and lethargic. REVIEW OF SYSTEMS: Cannot be obtained from the patient. This is because patient is not cognitively capable of answering the questions. ALLERGIES: None. The emphatically denies any allergies related to codeine. HOME MEDICATIONS: List has not been done, but her last medication list showed that she was taking allopurinol, Xanax, aspirin, Wellbutrin, calcium citrate, Coreg, Flexeril, digoxin, doxepin, Cymbalta, enalapril, folic acid, furosemide, gabapentin, Amaryl, isosorbide dinitrate, Lamictal, meloxicam, Remeron, multivitamin tablets, Humulin-N, omega-3, Prilosec, oxycodone, simvastatin, and Geodon. SURGICAL HISTORY: She has had 3 stents, cholecystectomy, back surgery, right ankle surgery. FAMILY HISTORY: Negative for any diabetes, cancer, or heart disease. Her sister from alcoholism. SOCIAL HISTORY: She stopped smoking about 14 years ago. Lives with her . No alcohol or illicit drug use at this point in time. LABORATORY WORK: White count 3000, hemoglobin and hematocrit 10 and 32, platelets 125,000, with normal differential. Sodium 135, potassium 5.6, BUN 46, creatinine 2.6, which is increased from a creatinine of 1.2 less than a week ago. Glucose 161, AST 31, ALT 36, alkaline phosphatase 225, troponins negative. PT is 11, PTT 51. Urinalysis: 10-20 white RBCs, otherwise grossly unremarkable. Blood gas pH 7.32, pCO2 45, PO2 119, and this was on 50% Venti mask. Lactate was normal. CT of the abdomen and chest noted no evidence of PE. Hepatosplenomegaly was noted. L2-L3 diskitis was noted. Uterine fibroid, 1.8 cm fibroid, was also noted. Questionable tracheal stenosis was noted. A right renal angiomyolipoma was also noted. The main thing was the patient also had evidence of pulmonary edema and congestive heart failure was also noted. Chest x-ray films confirmed the same findings of pulmonary edema. Head CT showed no acute intracranial process. EKG still pending. PHYSICAL EXAMINATION: GENERAL: Morbidly obese, middle-aged woman, who is in respiratory distress with BiPAP on face. She is very drowsy and somnolent, but can be aroused, and she will transiently open her eyes. HEENT: Head is normocephalic, atraumatic. She has periorbital edema. Pupils are about 3 cm, but fixed, not reactive to light. NECK: Short and thick. I cannot visualize any JVD. No central cyanosis visualized. I did not do any oropharyngeal exam because the patient is on a Venti-mask. VITAL SIGNS: Blood pressure 181/91, O2 saturations 91 percent on 2 L. Respiratory was 27. Heart rate was 87. Temperature was 93.9. CHEST: The patient had decreased entry in both lung maynard, with questionable basilar coarse crepitations. CARDIOVASCULAR: First and second heart sounds heard. No gallops, murmurs, rubs. Rhythm is regular. ABDOMEN: Protuberant, soft, nontender. No splenomegaly. Bowel sounds hypoactive sounds at this time. Otherwise, patient had a reducible supraumbilical ventral hernia. I could not elicit any tenderness. EXTREMITIES: Patient has trace to 1+ pitting edema in all extremities, more in the lower extremity. Pulses distally in all extremities were intact and symmetrical, with good volume. NEUROLOGICAL: The patient has no gross focal deficits. She does have visible myoclonus and asterixis. SKIN: Intact. No breakdown or lesions. MUSCULOSKELETAL: Exam is grossly normal. ASSESSMENT: 1. Metabolic encephalopathy secondary to acute kidney injury, which was secondary to depleted intravascular volume with concomitant use of NSAIDs and MARY inhibitors. Plan at this time: The patient is in florid pulmonary edema. I am concerned that she may end up requiring hemodialysis. This is borne out of the fact that she had an above average load of intravenous contrast dye for imaging studies, which will probably worsen her renal function, coupled with the fact that we had no choice but to give her IV Lasix to achieve some diuresis. Depending on how she responds to this, we may decide to back off the diuretics, or continue, or even escalate the dose. For this dose, she may require hemodialysis, not only because of pulmonary edema, but because she is showing signs of uremic encephalopathy. Patient also may have some features of toxic encephalopathy from the poorly excreted [employer]-acting medications. The patient may also have some residual brain insult from the recent hypoglycemia, which was secondary to poor clearance of insulin and Amaryl. We will consult Dr. Casas for further input, and monitor her BMP, at which time we will decide in a day or 2 whether she would need hemodialysis. At this point in time, the would like to proceed with that if needed. However, THE PATIENT IS A DNR/DNI PER HER . THIS IS THE PATIENT'S WISHES. 2. Severe hypoglycemia secondary to poor clearance of Amaryl and insulin. As I stated earlier, this is secondary to acute kidney injury, which occurred from depleted intravascular volume with MARY inhibitor and NSAID exposure. The decreased intravascular volume is probably likely secondary to the acute on chronic diarrhea from antibiotics. 3. Acute kidney injury, secondary from depleted intravascular volume and NSAIDs and MARY inhibitor and diuretic. Nephrology consulted. 4. Type 2 diabetes. We will avoid insulin at this point in time, and oral hypoglycemic agents. Monitor blood sugars q.4, and treat hypoglycemia aggressively, i.e., the patient will be given D50 if blood sugar is less than 100, as I am very concerned that the hypoglycemic effects of Amaryl may still persist. 5. Coronary artery disease. Continue aspirin. Beta blockers may be restarted once she can tolerate or be given IV if need be, IV in the form of metoprolol. 6. Pulmonary edema/congestive heart failure. Echocardiogram has been ordered. Diuretics will be continued. Nitroglycerin paste and DuoNeb will also be initiated. For now will hold her MARY inhibitor, as this may worsen renal function. 7. Chronic obstructive pulmonary disease. Will continue with DuoNebs for now. 8. Hypothyroidism. Check TSH levels if not done. 9. Will check ABG in the morning, check chest film in the morning, BMP, CBC to document either improvement with our treatment or worsening of the patient's clinical condition. Consult Dr. Schulz for BiPAP management, and Dr. Alex Rodas for continuation of patient's IV antibiotics. Critical care time on this patient was 50 minutes. cc: MD Hill Corbin MD
[2017-05-21 04:30] LABS: ALLEN TEST YES; BE 0.2 mmoll (-3.0-3.0); BLOOD TYPE ARTERIAL; DRAW SITE R RADIAL; METHB 0.9 % (0.0-1.5); MODALITY BI PAP; O2(CT) 14.9 mL/dL (15.0-23.0); PCO2(98.6) 46 mmHg (35-45); PO2(98.6) 120 mmHg (60-100); SAMPLE BLOOD; SAO2 99.6 % (95.0-100.0); THB 10.8 g/dL (11.5-17.4); pH(98.6) 7.36 (7.35-7.45)
[2017-05-21 04:49] LABS: MANUAL DIFF NEEDED? NO
[2017-05-21 04:52] LABS: BASO% 0.5 % (0.0-0.8); EOS# 0.16 X1000 (0.0-0.7); EOS% 4.3 % (0.0-10.0); HEMATOCRIT 31.6 % (37.0-47.0); HEMOGLOBIN 10.1 g/dL (12.0-16.0); IMM GRAN# 0.02 X1000 (0.0-0.04); IMM GRAN% 0.5 % (0.0-0.5); LYMPH# 0.73 X1000 (1.2-3.4); LYMPH% 19.7 % (20.5-51.1); MCH 29.3 PG (27-31); MCV 91.6 FL (81-99); MONO# 0.68 X1000 (0.11-0.59); MONO% 18.3 % (1.7-9.3); MPV 11.2 FL (7.4-10.4); NEUT% 56.7 % (42.2-75.2); PLT 135 X1000 (130-400); RBC 3.45 XMIL (4.2-5.4)
[2017-05-21 05:51] LABS: ALBUMIN 3.6 g/dL (3.5-5.0); POTASSIUM 5.1 mmol/L (3.5-5.1); TOTAL BILIRUBIN 0.24 mg/dL (0.20-1.00); TOTAL PROTEIN 6.3 g/dL (6.3-8.3)
[2017-05-21] MEDS ORDERED: D50W SYRINGE ONE (05:58)
--- NOTE | 2017-05-21 08:09 | Diag Imaging Result Doc PS360 ---
EXAM: CHEST-PORTABLE - 05/21/2017 HISTORY: pulm edema TECHNIQUE: Portable chest 0550 COMPARISON: 05/20/2017 at 1948 FINDINGS: Inspiration is mildly shallow. There is been interval decrease in interstitial edema. Interstitial markings remain mildly prominent. There is some atelectasis or infiltrate in the medial right base. There is no substantial pleural effusion or pneumothorax identified. Heart size appears within normal limits. Central venous catheter remains in place. IMPRESSION: Interval decrease in interstitial edema. Atelectasis or infiltrate at medial right base. Electronically signed by Riccardo Irby 05/21/2017 8:07 AM
[2017-05-21] MEDS ORDERED: D5W 1,000 ML IV SCH (08:48)
--- NOTE | 2017-05-21 08:49 | PROGRESS NOTE ---
DATE: 05/21/2017 SUBJECTIVE: Ms. Allen was admitted yesterday. She is a 66-year-old with past medical history of diabetes mellitus type 2, coronary artery disease, hypothyroidism, fibromyalgia, gout, psoriasis, COPD, questionable congestive heart failure. She was seen in our facility for diskitis and was subsequent transferred to [facility], spent 11 days IV antibiotic initiation. Thereafter on April 19 she has been given IV cefepime and what I suspect may be vancomycin that she took even up until yesterday. Her was at the bedside because the patient very confused and lethargic, informing me she had been having diarrhea since the onset of these antibiotic and that it has taken a turn for the worse over the last week. Her stools have not been dark nor bloody. No vomiting or abdominal pain per se. Noticed that the last few days she has been having more shortness of breath, but today things got so bad she was unable to walk and she fell down 3 times because her gait was severely ataxic. ASSESSMENT/PLAN: 1. She was admitted with metabolic encephalopathy secondary to acute kidney injury which is secondary to depleted intravascular volume and concomitant use of nonsteroidal and MARY inhibitors. So, patient in florid pulmonary edema. She may end up requiring dialysis. Nephrology was involved. She was given some Lasix. Continue to try and diurese. 2. Severe hypoglycemia secondary to poor clearance of Amaryl and insulin. 3. Acute kidney injury. 4. Diabetes mellitus type 2. 5. Coronary artery disease. Continue her aspirin and beta blockers. 6. Pulmonary edema, congestive heart failure. 7. Chronic obstructive pulmonary disease. 8. History of hypothyroidism. Review of orders: I do not see any changes at that point. She is on Lasix 60 mg IV q. 12, isosorbide dinitrate, Protonix 40 mg a day. Review of her lab: Hematocrit stable at 31. Chemistries: Creatinine 2.5. cc: Yaniv Rendon MD
[2017-05-21] MEDS ORDERED: CEFEPIME 2 GM IV SCH (09:00)
[2017-05-21] MEDS ORDERED: CLINDAMYCIN PHOSPHATE IV SCH (09:00)
[2017-05-21] MEDS: D5 NS 1,000 ML IV SCH ×2 (09:07→19:56)
[2017-05-21] MEDS: PROTONIX IV SCH (09:26)
[2017-05-21] MEDS: HEPARIN SUBQ SCH ×2 (09:26→20:00)
[2017-05-21] MEDS: COREG PO SCH ×2 (09:27→20:02)
[2017-05-21] MEDS: CLINDAMYCIN 600 MG/NS 600 MG/50 ML IVPB IV SCH ×2 (10:40→17:00)
[2017-05-21] MEDS: MAXIPIME 2 GM/NS 2 GM/100 ML IVPB IV SCH ×2 (10:41→21:03)
[2017-05-21] MEDS: D50W SYRINGE IV PRN (13:24)
--- NOTE | 2017-05-21 14:19 | CONSULTATION ---
DATE OF CONSULTATION: 05/21/2017 REQUESTING PHYSICIAN: Dr. Alexus Thompson. REASON FOR CONSULTATION: Respiratory failure. HISTORY OF PRESENT ILLNESS: Ms. Allen is a 66-year-old white female with morbid obesity, BMI of 40, COPD, diabetes mellitus, and multiple medical problems outlined below who has been on IV antibiotics for a vertebral diskitis. The patient was found poorly responsive and EMS was called to her residence. Blood sugar was undetectable and she received D 50. The patient was brought to the hospital. She has had additional blood sugars as low as 25. She has acute respiratory failure and is currently on BiPAP. At the patient's previous request, she is a DO NOT RESUSCITATE LEVEL 1. PAST MEDICAL HISTORY: Problem List: 1. Chronic obstructive pulmonary disease with a 50-pack year history for tobacco. 2. Bipolar disorder. 3. Morbid obesity. 4. Diabetes mellitus. 5. Coronary artery disease, status post prior stent placement. 6. Diskitis on IV antibiotics as per above. 7. Hypertension. 8. Dyslipidemia. 9. Hypothyroidism. 10. Gout. 11. Chronic kidney disease. 12. Status post cholecystectomy. 13. History of urinary tract infections with altered mental status. SOCIAL HISTORY: Patient is and has an attentive . She has a 50- pack-year history for tobacco but none recently. No alcohol use. FAMILY HISTORY: Positive for alcohol use. REVIEW OF SYSTEMS: Cannot be obtained. The patient opens her eyes, but does not follow commands. PHYSICAL EXAMINATION: General: Exam reveals an obese, white female, on BiPAP ventilation. Vital Signs: BP 145/65. Heart rate 93. Oxygen saturation 99%. HEENT: Pupils are equal but reactive. Oropharynx evaluation is limited with BiPAP in place. Neck: Supple. Chest: Reveals coarse rhonchi bilaterally. There is a central venous access emanating from the right chest wall. Cardiac Exam: Distant heart sounds. Normal S1. Normal S2. Abdomen: Obese and soft. Extremities: Reveal 1+ edema. Neurologic: Patient moves all extremities. She has a generalized nonpurposeful tremor. LABORATORY DATA: CT scan of the thorax is reviewed. There is cardiomegaly. There is vascular congestion. There is significant movement artifact. There is mucus in the trachea versus stenosis. Airways to the right base cannot be appreciated and may be due to mucous impaction but tumor cannot be ruled out. White blood count 3.71, hemoglobin 10.1, platelet count 135,000. Chemistry: Sodium 137, potassium 5.1, chloride 100, bicarbonate 24. BUN 46, creatinine 2.5. Glucose at 3:50 this morning was 35. Most recent glucose was 169. Arterial blood gas on BiPAP: pH 7.36, pCO2 of 46, pO2 of 120. IMPRESSION: A 66-year-old with multiple medical problems including chronic obstructive pulmonary disease, diabetes, chronic diskitis on antibiotics, who presents with profound hypoglycemia, hypoxemic and hypercapnic respiratory failure, and altered mental status. With correction of her sugar, she has not improved, and she may have sustained a brain injury associated with severe neuroglycopenia. She has abnormalities noted in the trachea and the right lower lobe airways which may be related to mucus but tumor cannot be completely eliminated at this juncture. Her prognosis is guarded given her multiple medical problems and failure to significantly improve with correction of blood sugar. RECOMMENDATIONS: 1. Continue BiPAP for acute hypoxemic and hypercapnic respiratory failure. 2. Continue antibiotics per Infectious Disease. 3. Agree with continuous glucose infusion to prevent additional hypoglycemia. 4. Consider repeat CT scan or bronchoscopy to evaluate the airways if she has significant clinical improvement. 5. Additional recommendations pending hospital course. Her prognosis is guarded. Her current code status is allow natural /DNR. cc: Carlyle Schulz MD [facility]
[2017-05-21] MEDS: TYLENOL PR PRN (17:57)
[2017-05-21] MEDS: ATIVAN IV PRN ×2 (17:57→23:37)
--- NOTE | 2017-05-21 19:12 | ECHO REPORT ---
ORDER DATE: 05/21/2017 MEASUREMENTS: Left ventricular end-diastolic diameter 4.2, end systolic diameter 3.4, septal thickness 0.6, posterior wall thickness 1.1. Left atrium 4.8, aortic root 3.2. SUMMARY: 1. Technically difficult study due to limited acoustic window quality. 2. Aortic valve is trileaflet and opens normally on 2-dimensional images. Mitral, tricuspid, and pulmonic valves are without structural abnormality with mild mitral regurgitation, mild tricuspid regurgitation, and mild pulmonic insufficiency. The estimated systolic PA pressure by Doppler is 40 mmHg suggesting mild pulmonary hypertension. The aortic root is normal size. 3. Normal left ventricular chamber size and wall thickness. Estimated left ejection fraction approximately 40%. There is mild hypokinesis of the mid anteroseptal region and akinesis of the apical anteroseptal region. There is akinesis of the very apex left ventricle. Doppler left atrium is mildly enlarged. Right atrium and right ventricle are of normal size with normal right ventricular systolic function. 4. No pericardial effusion. 5. Appearance of inferior vena cava suggests elevated central venous pressure. CONCLUSIONS: 1. Technically difficult study. 2. Mild mitral regurgitation. 3. Mild tricuspid regurgitation with mild pulmonary hypertension. 4. Estimated left ejection fraction approximately 40% with evidence of previous apical infarct. 5. Mild left atrial enlargement. 6. Elevated central venous pressure suggested. cc: MD Alexus Kitchen MD
[2017-05-21] MEDS: MUCOMYST 20% INH SCH (19:33)
--- NOTE | 2017-05-21 19:58 | Diag Imaging Result Doc PS360 ---
EXAM: FOOT COMPLETE LEFT - 05/21/2017 HISTORY: fall TECHNIQUE: Portable left foot three views COMPARISON: None. FINDINGS: There are multiple hammertoe deformities. There is smooth deformity of the base of the proximal phalanx of the second toe which is likely long-standing. There are erosions at the distal head of the first metatarsal and base of the proximal phalanx of the great toe, which may relate to gout. There is calcaneal spurring. There is no acute fracture or dislocation identified. IMPRESSION: No evidence of acute fracture or dislocation. Erosions near first metatarsal phalangeal joint which may relate to gout. Electronically signed by Riccardo Irby 05/21/2017 7:55 PM
[2017-05-21] MEDS: ISORDIL PO SCH (20:02)
[2017-05-21] MEDS ORDERED: VANCOMYCIN IV PER PHARMACY MISC SCH (21:00)
[2017-05-21] MEDS ORDERED: VANCOMYCIN 2,000 MG in NS 500 ML IV ONE (22:00)
[2017-05-22] MEDS: DUONEB (A & A) INH SCH ×7 (00:04→23:17)
[2017-05-22] MEDS: D50W SYRINGE IV PRN (00:06)
[2017-05-22] MEDS: LASIX IV SCH ×2 (00:42→12:31)
[2017-05-22] MEDS: TYLENOL PR PRN ×2 (01:20→12:31)
[2017-05-22] MEDS: ATIVAN IV PRN ×2 (03:15→16:42)
[2017-05-22 04:53] LABS: ALLEN TEST YES; BE 2.3 mmoll (-3.0-3.0); BLOOD TYPE ARTERIAL; DRAW SITE R RADIAL; METHB 0.8 % (0.0-1.5); O2(CT) 15.2 mL/dL (15.0-23.0); PCO2(98.6) 38 mmHg (35-45); PO2(98.6) 110 mmHg (60-100); SAMPLE BLOOD; SAO2 99.4 % (95.0-100.0); THB 11.1 g/dL (11.5-17.4); pH(98.6) 7.45 (7.35-7.45)
[2017-05-22 04:54] LABS: MODALITY CANNULA
[2017-05-22 05:21] LABS: MAGNESIUM 1.7 mg/dL (1.5-2.7)
[2017-05-22 05:30] LABS: ALBUMIN 3.3 g/dL (3.5-5.0); CALCIUM 8.8 mg/dL (8.8-10.2); POTASSIUM 4.2 mmol/L (3.5-5.1); TOTAL BILIRUBIN 0.29 mg/dL (0.20-1.00); TOTAL PROTEIN 6.4 g/dL (6.3-8.3)
--- NOTE | 2017-05-22 07:48 | Diag Imaging Result Doc PS360 ---
EXAM: CHEST-PORTABLE - 05/22/2017 HISTORY: respiratory failure TECHNIQUE: Portable chest 0535 COMPARISON: 05/21/2017 FINDINGS: Inspiration is mildly shallow similar to the previous exam. There is been interval decrease in atelectasis or infiltrate at the medial right base. There is stable mild interstitial marking prominence elsewhere. There is no substantial pleural effusion or pneumothorax identified. Heart size is stable. Central venous catheter remains in place. IMPRESSION: Mildly shallow inspiration. Decreased atelectasis or infiltrate at medial right base. Stable mild interstitial marking prominence elsewhere. Electronically signed by Riccardo Irby 05/22/2017 7:46 AM
[2017-05-22] MEDS: MUCOMYST 20% INH SCH ×2 (08:21→19:17)
[2017-05-22] MEDS: PROTONIX IV SCH (09:06)
[2017-05-22] MEDS: CLINDAMYCIN 600 MG/NS 600 MG/50 ML IVPB IV SCH ×3 (09:06→16:43)
[2017-05-22] MEDS: COREG PO SCH ×2 (09:07→20:46)
[2017-05-22] MEDS: D5 NS 1,000 ML IV SCH ×2 (09:07→20:46)
[2017-05-22] MEDS: HEPARIN SUBQ SCH ×2 (09:13→20:45)
--- NOTE | 2017-05-22 09:18 | PROGRESS NOTE ---
DATE: 05/22/2017 SUBJECTIVE: Ms. Allen appears more comfortable. She is not having as much twitching and myoclonus. She appears to be breathing comfortably. PHYSICAL EXAMINATION: Vital Signs: Temperature 99 degrees, pulse 129, respirations 19, blood pressure 113/93. HEENT: Pupils are equal. CVP less than 6 cm. Lungs: Clear in all lung maynard. Cardiovascular Examination: Regular rhythm and rate without murmur or S3. Abdomen: Soft. Skin. Warm and dry. Is and s: Urine output over 5 L. LABORATORY DATA: Blood sugar 113, 127, 164. Chemistries from this morning, sodium 143, potassium 4.2, chloride 104, BUN 40, creatinine 2.3, blood sugars 187, 164, 156. Alkaline phosphatase 227. Serum creatinine appears to be stable. Chest x-ray from this morning, mildly shallow inspiration, decreased atelectasis, infiltrate in the medial right base stable, mild interstitial marking prominence elsewhere. Did an x-ray of her left foot x-ray. No evidence of acute fracture or dislocation. Erosion near 1st metatarsophalangeal joint which may relate to gout. ASSESSMENT AND PLAN: 1. Obstructive pulmonary disease. She had an episode of profound hypoglycemia. Altered mental status. Correction of her sugar but has not improved much. She has less mild clonus. She may have sustained a brain injury with severe neuroglycopenia. She has abnormalities noted by Dr. Schulz in the trachea and the right lower lobe which may relate to mucus but tumor could not be completely eliminated or ruled out at this juncture. continue BiPAP, continue antibiotics, and continue continuous glucose perfusion. 2. Hypoglycemia. Continuous glucose perfusion. 3. Consider CT or bronchoscopy to evaluate airways. Prognosis is guarded at this point. Note, her sugars seem to be doing a little better. She did get as low as 25 on the 5th. I think this was the effects of oral hypoglycemic still in place. 4. Review of orders. I do not see anything different to do at this point. We will continue clindamycin and cefepime as she was getting that for diskitis and so continue that regimen. We will ask Dr. Rodas to assist tomorrow. Dr. Casas is following. Renal function is stable. cc: Yaniv Rendon MD
[2017-05-22] MEDS: MAXIPIME 2 GM/NS 2 GM/100 ML IVPB IV SCH (10:00)
--- NOTE | 2017-05-22 14:48 | CONSULTATION ---
DATE OF CONSULTATION: 05/22/2017 REASON FOR CONSULTATION: Acute kidney injury. HISTORY OF PRESENT ILLNESS: Ms. Allen is a 66-year-old woman who though does open eyes, does not look at me or attend to me or answer any questions. As such, the history is obtained entirely from the chart. She was brought to the hospital because of altered mental status that has been progressive over a couple of days. She was significantly hypoglycemic, and this was treated in the field and continued in the hospital as appropriate. However, she has not aroused any. She has a history of a recent diskitis and was treated with broad-spectrum antibiotics and transferred to [facility] for further management. She spent 11 days in that facility. She did not have acute kidney injury while in our facility. Her last creatinine was 1.2 on May 16. She has been in the ICU receiving IV fluids since admission. She has had excellent urine output. PAST MEDICAL HISTORY: Diabetes, hypertension, hyperlipidemia, peripheral neuropathy, COPD, possible heart failure, hypothyroidism. HOME MEDICATIONS: Reviewed as listed. ALLERGIES: None. SOCIAL HISTORY, FAMILY HISTORY, REVIEW OF SYSTEMS: Reviewed in the notes. Nothing to add. PHYSICAL EXAMINATION: Vital Signs: Blood pressure 113/93, heart rate 115, respirations 19, afebrile. Generally: She is an elderly woman who appears older than stated age. No acute distress. Skin: Pale and dry. Conjunctivae are pink. Pupils are equal. Oropharynx is dry. Neck: Supple. Trachea is midline. Neck veins are not appreciated. Heart: Regular and tachycardic. Lungs: Have equal breath sounds. Shallow, a few rhonchi. Abdomen: Soft, nontender. Bowel sounds present. No organomegaly or masses. Extremities: Have no edema, clubbing, or cyanosis. Neurologic: Nonfocal except as above. IMPRESSION: Acute kidney injury. Her creatinine has improved modestly since admission. She has excellent urine output. Most likely, she has intravascular volume depletion. She is certainly at risk to develop acute tubular necrosis. Her course, however, does not really support that diagnosis. She had abdominal imaging on the evening of the without evidence of obstruction. She did received IV contrast at that time, though again, her creatinine has only decreased since admission, so no obvious further injury related to IV contrast. cc: Sav Casas MD
[2017-05-22] MEDS ORDERED: CARDIZEM ONE (15:24)
[2017-05-22] MEDS ORDERED: CARDIZEM IV ONE (15:26)
[2017-05-22] MEDS ORDERED: CARDIZEM 100 MG/NS 100 MG/100 ML IVPB IV SCH (15:27)
[2017-05-22] MEDS ORDERED: CARDIZEM 125 MG in NS 100 ML IV SCH (16:00)
[2017-05-22] MEDS ORDERED: CARDIZEM 125/NS 125 MG/125 ML IVPB IV SCH ×2 (17:00→19:19)
[2017-05-22] MEDS ORDERED: LANOXIN IV ONE (19:17)
--- NOTE | 2017-05-22 20:16 | CONSULTATION ---
DATE OF CONSULTATION: 05/22/2017 CONCLUSION: I have been requested to see the patient regarding treatment of her diskitis. The patient had diskitis following spinal surgery performed by Dr. Rodriguez. Dr. Hill Turk was consulted to treat the patient's diskitis. He has been treating the patient with a combination of clindamycin 600 mg IV every 8 hours and cefepime 2 g IV every 12 hours. In addition, the patient had a positive blood culture for a coagulase-negative staph which I think is a contaminant and does not merit treatment. RECOMMENDATIONS: I have decreased the dose of cefepime because of the patient's renal insufficiency. Also I have discontinued vancomycin because only 1 of 2 blood cultures was positive for coagulase-negative staph which as mentioned above, I think is a contaminant and does not require treatment with antibiotics. DISCUSSION: Patient is unable provide a history. History was taken from the patient's . He tells me that the patient had a big drop in her glucose and then a seizure and then she was comatose. He called for emergency service. She was brought to [facility] and put in intensive care unit. The patient now is awake however she is in a type of delirium. She does not talk. She does not follow requests to move her extremities. LABORATORY STUDIES: Thus far show a CBC with a white count of 3710, hemoglobin 10.1 and platelet count 135,000. The patient's blood gases show a pH of 7.45, PO2 of 110, pCO2 of 38. Creatinine is 2.3. The GFR is 21. Alkaline phosphatase is 227. Drug screen is positive for oxycodone and benzodiazepines, 1 of 2 blood cultures is positive for coagulase-negative staph. The patient's stool was sent for Clostridium difficile antigen and toxin both of which are negative. PAST MEDICAL HISTORY/REVIEW OF SYSTEMS: This was taken from the . Eyes and ears: The patient did not have any trouble with hearing or seeing. Neck: No stiffness. Respiratory: She was not short of breath or coughing. Cardiac: She did not complain of chest pain or palpitations. GI: The patient ever since being started on antibiotics has had some loose stools but not watery and she was not having fever. She did not have blood in her stools either. Genitourinary: No dysuria or urinary incontinence to the best of the 's knowledge. Bones, joints, muscles: There were no swollen joints. The patient did fracture her ankle and had surgery on it. Neurologic: As mentioned above, the patient had a seizure and then became comatose. Prior to that her says she was very active. She could walk, she did not have any loss of memory. Endocrine: Patient was a diabetic but she did not have thyroid disease. Integument: No rashes. [employer]PER[employer]OR HISTORY: The patient has never been . PREVIOUS HOSPITALIZATIONS AND OPERATIONS: She has had a myocardial infarction, cholecystectomy and surgery for right ankle fracture. She has also had dental implants. MEDICAL DISEASES: Positive for diabetes mellitus, hypertension, myocardial infarction, hyperlipidemia and gastroesophageal reflux disease. INFECTIOUS DISEASE HISTORY: Positive for diskitis as mentioned above. Negative for pneumonia and UTI. FAMILY HISTORY: According to the , he did not know of any illnesses that occurred in the family of his . SOCIAL HISTORY: Patient lives with her in [place], she stopped smoking cigarettes in 2001. She is . She has cat as a pet. ALLERGIES: Chart lists an allergy to codeine. HOME MEDICATIONS: Include cefepime and clindamycin being given intravenously, Geodon, simvastatin, oxycodone, omeprazole, fish oil and insulin. PHYSICAL EXAM: Vital Signs: Temperature is 99.4 degrees, pulse 111, respirations 15, blood pressure 100/58. General: This is an ill-appearing elderly female. She is obese, she seems to be delirious. Head, eyes, ears, nose, and Throat: No drainage noted from the nose or ears. She did not respond to verbal stimuli. She did not track with her eyes. She did not open her mouth so I could not examine the mouth. Neck: No meningismus. Lungs: Clear to auscultation. Cardiovascular: Heart rate was regular. The patient has leg edema. Peripheral pulses were palpated. Abdomen: Soft and nontender. Neurologic: As mentioned above, the patient appears to be in a delirium. She did not respond to verbal stimuli. She did not track with her eyes. She did not talk during the exam. I requested her to move her arms and legs and she did not while I was in the room. Integument: No rash noted. Thank you for the consult. cc: Alex Rodas MD
[2017-05-22] MEDS: ISORDIL PO SCH (20:46)
[2017-05-22] MEDS: MAXIPIME 1 GM/NS 1 GM/50 ML IVPB IV SCH (22:07)
[2017-05-23] MEDS: LASIX IV SCH ×2 (00:06→13:27)
[2017-05-23] MEDS: CLINDAMYCIN 600 MG/NS 600 MG/50 ML IVPB IV SCH ×3 (00:06→18:23)
[2017-05-23] MEDS: DUONEB (A & A) INH SCH ×6 (03:17→22:54)
[2017-05-23 05:23] LABS: ALLEN TEST YES; BE 1.7 mmoll (-3.0-3.0); BLOOD TYPE ARTERIAL; DRAW SITE R RADIAL; METHB 0.9 % (0.0-1.5); O2(CT) 16.6 mL/dL (15.0-23.0); PCO2(98.6) 42 mmHg (35-45); PO2(98.6) 96 mmHg (60-100); SAMPLE BLOOD; SAO2 99.2 % (95.0-100.0); THB 12.2 g/dL (11.5-17.4); pH(98.6) 7.41 (7.35-7.45)
[2017-05-23 05:24] LABS: MODALITY CANNULA
[2017-05-23 06:24] LABS: ALBUMIN 3.1 g/dL (3.5-5.0); CALCIUM 8.9 mg/dL (8.8-10.2); POTASSIUM 4.6 mmol/L (3.5-5.1); TOTAL BILIRUBIN 0.24 mg/dL (0.20-1.00); TOTAL PROTEIN 6.4 g/dL (6.3-8.3)
--- NOTE | 2017-05-23 06:25 | Diag Imaging Result Doc PS360 ---
EXAM: CHEST-PORTABLE HISTORY: respiratory failure TECHNIQUE: Portable AP COMPARISON: 05/22/2017 FINDINGS: No change in the right-sided portacatheter. No pneumothorax. The lungs are well expanded. Heart is not enlarged. Mild central vascular prominence similar to the prior exam. No pleural effusions identified. IMPRESSION: No interval change. Electronically signed by Miguel Menchaca 05/23/2017 6:23 AM
--- NOTE | 2017-05-23 07:19 | EKG Report ---
Test Performed on : 05/20/2017 8:35:52 PM Test Reason : Stroke like symptoms Blood Pressure : / mmHG Vent. Rate : 085 BPM Atrial Rate : 085 BPM P-R Int : 168 ms QRS Dur : 074 ms QT Int : 368 ms P-R-T Axes : 081 032 053 degrees QTc Int : 437 ms Normal sinus rhythm. Low voltage QRS Septal infarct (cited on or before 09-JUN-2013) Abnormal ECG When compared with ECG of 19-APR-2017 19:39, Nonspecific T wave abnormality now evident in Inferior leads Unconfirmed Result
[2017-05-23] MEDS: MUCOMYST 20% INH SCH ×2 (07:47→19:20)
[2017-05-23] MEDS: PROTONIX IV SCH (08:21)
[2017-05-23] MEDS: HEPARIN SUBQ SCH ×2 (08:21→20:46)
[2017-05-23] MEDS: COREG PO SCH ×2 (08:48→20:45)
--- NOTE | 2017-05-23 09:12 | PROGRESS NOTE ---
DATE: 05/23/2017 SUBJECTIVE: Ms. Allen is currently resting in bed. She opens her eyes. She does not follow commands. She does not make eye contact. She remains nonverbal at this time. OBJECTIVE: Vital signs: Her most recent vital signs, temperature last recorded 97.8 degrees, blood pressure 143/77, heart rate 106, respirations 16. She is on 2 L nasal cannula. Last recorded saturation 96%. She has had 2600 in. She has had 3425 out per Healy catheter. Labs: Sodium 144, potassium 4.6, chloride 104, CO2 24, BUN 45, creatinine 2.1, glucose 295. Her anion gap is 16, calcium 8.9, albumin 3.1. White count 2.71, hemoglobin 10.1, hematocrit 31.6, with a platelet count of 135,000. ABGs show a pH of 7.41, CO2 42, PO2 96, bicarb 26.2 on 2 L nasal cannula. Her C. difficile toxin assay came back negative. Blood cultures came back with coagulase-negative staphylococcus. PHYSICAL EXAMINATION: General: This is a 66-year-old white female. She is in no acute distress. Skin: Warm and dry. HEENT: Normocephalic, atraumatic. Conjunctivae pink. She has JOCELYN. Oropharynx is dry. Neck: Supple. Trachea midline. No JVD. Cardiovascular: She is regular rate and rhythm. She remains tachycardic. No murmur or gallop appreciated. Lungs: Clear to auscultation anteriorly. Equal excursion. On O2. Abdomen: Round, soft, nontender. Positive bowel sounds. Extremities: Have no edema. No clubbing or cyanosis. Genitourinary: Patient has Healy catheter in place with adequate urine out. Neurological: As above. ASSESSMENT AND PLAN: 1. Acute kidney injury on CKD stage 3. Patient's creatinine has continued to slowly improve since her hospitalization. It is noted her baseline creatinine is 1 to 1.2. 2. Electrolytes. These remain stable. 3. Acid-base balance. This is stable. 4. Anemia. This is below target but stable. 5. Neurological. This is followed by the primary care team. I would like to thank you for allowing us to follow with this patient. Patient seen, data reviewed, discussed with Savannah Sheppard on 05/23/17. I agree with the above assessment and plan of care. rg Dictated by YING Bianchi for Sav Casas MD cc: YING Bianchi MD [facility]
--- NOTE | 2017-05-23 09:49 | EKG Report ---
Test Performed on : 05/22/2017 3:11:48 PM Test Reason : No Order in [facility] Blood Pressure : / mmHG Vent. Rate : 161 BPM Atrial Rate : 174 BPM P-R Int : 000 ms QRS Dur : 072 ms QT Int : 290 ms P-R-T Axes : 000 016 072 degrees QTc Int : 474 ms Atrial fibrillation. with rapid ventricular response. Septal infarct (cited on or before 22-MAY-2017) Abnormal ECG When compared with ECG of 22-MAY-2017 15:11, (Unconfirmed) Rate related ST depression inferior is suggested Confirmed by Alex Guillen DO ([id number]) on 05/23/2017 5:57:38 PM
[2017-05-23] MEDS: MAXIPIME 1 GM/NS 1 GM/50 ML IVPB IV SCH ×2 (10:06→21:57)
[2017-05-23] MEDS: D5 NS 1,000 ML IV SCH ×2 (10:07→20:46)
--- NOTE | 2017-05-23 16:24 | PROGRESS NOTE ---
DATE: 05/23/2017 PRESENT ILLNESS: I am seeing the patient to treat her diskitis. This was diagnosed by biopsy at [facility]. The treatment I am following is the one that Dr. Hill Turk put the patient on after seeing the patient for her diskitis. MEDICATIONS: The patient is receiving clindamycin 600 mg IV every 8 hours and cefepime 2 g IV every 12 hours IV. PHYSICAL EXAMINATION: Vital Signs: Temperature is 98 degrees, pulse 88, respirations 19, blood pressure 134/76. General: This is an ill-appearing, elderly female. She seems more alert today. She smiles. She responds to questions by nodding her head. Lungs: Clear to auscultation. Cardiovascular: Regular heart rate. Abdomen: Soft and nontender. LAB AND X-RAY: Chest x-ray is stable to the 1 obtained earlier. Specifically the chest x-ray shows that the lungs are well expanded. The heart is not enlarged. There is central vascular prominence. Lab ralph the patient's CBC today shows a white count of 3710, hemoglobin 10.1, and platelet count 135,000. Blood gases show a pH of 7.41, PO2 of 96, pCO2 of 42. Creatinine is 2.1. GFR is 23. PHYSICAL EXAM: General: This is a still ill-appearing elderly female. She is in no acute distress and as mentioned earlier she responds to verbal stimuli. She smiles also. Lungs: Clear to auscultation. Cardiovascular: Regular heart rate. Thorax: Patient has a Blum catheter in place. The catheter site is not erythematous or swollen. ASSESSMENT AND PLAN: My plan is to continue with the patient's antibiotics to complete the antibiotic treatment as order by Dr. Hill Turk. COMORBIDITIES: Include the patient is elderly, she has just recently had a stroke, she also has diabetes mellitus, gastroesophageal reflux disease and myocardial infarction. Thank you for the consult. cc: Alex Rodas MD
--- NOTE | 2017-05-23 18:46 | PROGRESS NOTE ---
DATE: 05/23/2017 SUBJECTIVE: She is more awake and alert. I do not see the tremor and myoclonus in her jaw and her arms and more responsive answering questions. Appears more comfortable. OBJECTIVE: Vital signs: Temperature 97.4 degrees, pulse 95, respirations 18, blood pressure 137/90. Lungs: Are clear in all lung maynard anterolateral. Cardiovascular: Regular rhythm, rate without murmur or S3. Abdomen: Soft. Skin: Is warm and dry. Urine output 1200 mL. LAB: From the 5th reviewed. Hematocrit stable at 31, blood sugars 281, 302. ASSESSMENT AND PLAN: 1. History of diskitis been on prolonged antibiotics diagnosed with biopsy from [facility], Dr. Hill Turk put the patient on a regimen of antibiotics. Patient continue clindamycin 600 mg IV q.8, cefepime 2 g IV q.12. 2. History of hypoglycemia, not sure how long and extensive that was, she seems to be improving and I suspect is from the oral hypoglycemic and sugars have come up and she seems to be neurologically improving. 3. Electrolytes and acid base looks good. 4. Anemia. Hemoglobin, hematocrit are stable. 5. Chronic kidney disease. Her creatinine was down to 1.0 back in December 2016 so see if we can continue to get some improvement. 6. Review of orders I do not see anything change at this point. I did put her on some Cardizem drip. She developed atrial fibrillation and rate was speeding up. Dr. Casas is following, Brian Rosario, she was also given some Lanoxin yesterday. Continue physical therapy. Advance her diet if she is swallowing okay. cc: Ynaiv Rendon MD
[2017-05-23] MEDS: ISORDIL PO SCH (20:44)
[2017-05-23] MEDS ORDERED: VANCOMYCIN 1,500 MG in NS 250 ML IV SCH (22:00)
[2017-05-24] MEDS: CLINDAMYCIN 600 MG/NS 600 MG/50 ML IVPB IV SCH ×3 (00:59→16:19)
[2017-05-24] MEDS: LASIX IV SCH ×2 (00:59→14:18)
[2017-05-24] MEDS: DUONEB (A & A) INH SCH ×6 (02:50→22:49)
[2017-05-24 04:33] LABS: ALLEN TEST YES; BE 3.8 mmoll (-3.0-3.0); BLOOD TYPE ARTERIAL; DRAW SITE R RADIAL; METHB 1.2 % (0.0-1.5); MODALITY BI PAP; O2(CT) 22.5 mL/dL (15.0-23.0); PCO2(98.6) 42 mmHg (35-45); PO2(98.6) 207 mmHg (60-100); SAMPLE BLOOD; SAO2 99.8 % (95.0-100.0); THB 16.2 g/dL (11.5-17.4); pH(98.6) 7.44 (7.35-7.45)
[2017-05-24 06:09] LABS: ALBUMIN 3.2 g/dL (3.5-5.0); CALCIUM 8.9 mg/dL (8.8-10.2); POTASSIUM 4.2 mmol/L (3.5-5.1); TOTAL BILIRUBIN 0.23 mg/dL (0.20-1.00); TOTAL PROTEIN 6.5 g/dL (6.3-8.3)
--- NOTE | 2017-05-24 07:24 | Diag Imaging Result Doc PS360 ---
EXAM: CHEST-PORTABLE HISTORY: respiratory failure TECHNIQUE: Erect AP portable at 0535 COMMENT: There is cardiomegaly. The inspiration is better than on 06/02/2017. Otherwise, there has been no significant change. IMPRESSION: Stable chest. Electronically signed by Lon Greene 05/24/2017 7:21 AM
[2017-05-24] MEDS: MUCOMYST 20% INH SCH ×2 (08:11→19:35)
--- NOTE | 2017-05-24 08:13 | Diag Imaging Result Doc PS360 ---
EXAM: CT THORAX W/O CONTRAST INDICATION: f/u tracheal abnormality TECHNIQUE: Dose reduction protocol was used. COMPARISON: 05/20/2017 FINDINGS: There is interstitial thickening with a basilar predominance suggesting mild edema. It is less significant than the previous study. There is mild dependent atelectasis at the right lung base. There is a small focal opacity at the periphery of the left upper lobe on image 30 of series 3 not present previously. This probably represents a small inflammatory focus. It measures approximately 8.8 mm. There is an 8.7 mm noncalcified nodule in the right middle lobe that is stable on image 46 of series 3. There are no pleural fluid collections and no pneumothorax. There are small shotty nonspecific mediastinal lymph nodes that are stable. There are a few calcified mediastinal and right hilar lymph nodes indicating prior granulomatous disease. There is extensive coronary artery calcification and milder aortic calcification. The focal tracheal narrowing seen on the previous study is certainly less prominent. On the previous study, much of this narrowing appears to have been due to tracheal mucoid debris. However, there is still mild narrowing of this region at a level just superior to the aortic arch. There are degenerative changes involving the thoracic spine. Bony structures are grossly intact. IMPRESSION: 1.Focal tracheal narrowing is significantly less prominent than the previous study. Please see the above discussion. 2.Suggestion of mild interstitial edema. 3.Focal opacity at the periphery of the left upper lobe that probably represents a small inflammatory focus. 4.Stable noncalcified nodule in the right middle lobe. 5.Other incidental/nonacute findings detailed above. Electronically signed by Ankit Frances 05/24/2017 8:10 AM
[2017-05-24] MEDS: COREG PO SCH ×2 (09:10→19:56)
[2017-05-24] MEDS: SODIUM CHLORIDE 0.9% INJ PRN (09:10)
[2017-05-24] MEDS: HEPARIN SUBQ SCH ×2 (09:10→19:59)
[2017-05-24] MEDS: PROTONIX IV SCH (09:10)
[2017-05-24] MEDS: D5 NS 1,000 ML IV SCH (09:12)
[2017-05-24] MEDS: 1/2 NS 1,000 ML IV SCH (10:41)
[2017-05-24] MEDS: MAXIPIME 1 GM/NS 1 GM/50 ML IVPB IV SCH ×2 (10:41→23:13)
--- NOTE | 2017-05-24 11:04 | PROGRESS NOTE ---
DATE: 05/24/2017 SUBJECTIVE: This patient is alert and oriented x3. Her is at the bedside and it looks like she is close to her baseline. She has been n.p.o., I will start feeding this patient today. Also, I will switch the D5 NS to half NS and I will monitor the blood sugar, it has been in the high 200s and low 300s. OBJECTIVE: Vital Signs: Temperature 97.4, pulse 89, respiratory rate 13, blood pressure 112/75, oxygen saturation 98 on 2 L of nasal cannula. HEENT: Head normocephalic. No trauma. PERRLA. Neck: Supple. No JVD. No masses. Central trachea. Chest: Clear to auscultation. No wheezing. No rales. Abdomen: Soft, nontender, nondistended. Extremities: No edema. No clubbing. No cyanosis. Neurological: This patient is alert and oriented x3. She is able to recognize her , she is following commands. She moves all 4 extremities. LABORATORY: Sodium 141, potassium 4.2, chloride 101, bicarbonate 27, BUN 41, creatinine 2, glucose 297, calcium 8.9, albumin 3.2. ASSESSMENT AND PLAN: 1. Altered mental status, resolved, likely secondary to severe hypoglycemia. We will continue to monitor. As per the , this is close to her baseline. 2. Hypoglycemia. This patient has been on D5 normal saline. I will stop it and put this patient on half normal saline. She has been stable and the blood sugar has been high. 3. History of diskitis, she has been on prolonged antibiotics and this was diagnosed with biopsy at [facility]. Dr. Hill Turk put this patient on antibiotics. Infectious Disease is following this patient. 4. Normocytic anemia. Will monitor. I will ask for CBC tomorrow. 5. Chronic kidney disease. This is getting better. Her creatinine was around 1-1.3 at the beginning of this year. We will continue to monitor. When she was admitted the creatinine was 2.6 and today is 2.0. Overall, this patient is doing better, I will start feeding this patient today after a bedside swallow evaluation. The D5 normal saline has been stopped and I started this patient on half normal saline, low rate of 50 mL/h. Also, I have requested physical therapy evaluation for this patient. CODE STATUS: This patient is DNR level 1. cc: Alexei Brown MD
[2017-05-24] MEDS: ZOFRAN IV PRN ×2 (16:15→19:55)
--- NOTE | 2017-05-24 18:41 | PROGRESS NOTE ---
DATE: 05/24/2017 PRESENT ILLNESS: The patient is being treated for diskitis. MEDICATIONS: Patient has been receiving clindamycin 600 mg IV every 8 hours and cefepime 2 g IV every 12 hours. PHYSICAL EXAMINATION: Vital Signs: Temperature is 98.6 degrees, pulse 91, respirations 20, blood pressure 129/66. General: The patient looks amazingly much better today. She is alert, smiling, and talking. Lungs: Clear to auscultation. Cardiovascular: Regular heart rate. Abdomen: Soft and nontender. Back: Not swollen or tender. LAB AND X-RAY: There is no new x-ray. Blood gases today showed a pH of 7.44, PO2 of 207, and a pCO2 of 42. Creatinine is 2. GFR is 25. The patient's alkaline phosphatase is 214. ASSESSMENT AND PLAN: Patient has diskitis. I am continuing the antibiotics that the patient was originally placed on by Dr. Hill Turk. The patient's comorbidities include being elderly. She recently had a stroke. She also has diabetes, gastroesophageal reflux disease, and a prior myocardial infarction. cc: Alex Rodas MD
[2017-05-24] MEDS: ISORDIL PO SCH (19:59)
[2017-05-24] MEDS: ATIVAN IV PRN (22:05)
[2017-05-25] MEDS: LASIX IV SCH ×2 (00:43→12:30)
[2017-05-25] MEDS: ZOFRAN IV PRN ×5 (00:49→21:31)
[2017-05-25] MEDS: CLINDAMYCIN 600 MG/NS 600 MG/50 ML IVPB IV SCH ×3 (02:03→16:11)
[2017-05-25] MEDS: DUONEB (A & A) INH SCH ×5 (03:13→23:43)
[2017-05-25] MEDS: 1/2 NS 1,000 ML IV SCH ×2 (05:25→23:28)
[2017-05-25 06:17] LABS: MANUAL DIFF NEEDED? NO
[2017-05-25 06:25] LABS: BASO% 0.6 % (0.0-0.8); EOS# 0.31 X1000 (0.0-0.7); EOS% 9.6 % (0.0-10.0); HEMATOCRIT 34.7 % (37.0-47.0); HEMOGLOBIN 11.5 g/dL (12.0-16.0); LYMPH% 40.1 % (20.5-51.1); MCH 29.6 PG (27-31); MCHC 33.1 g/dL (33-37); MCV 89.4 FL (81-99); MONO# 0.42 X1000 (0.11-0.59); MPV 10.5 FL (7.4-10.4); NEUT% 36.7 % (42.2-75.2); PLT 143 X1000 (130-400); RBC 3.88 XMIL (4.2-5.4)
[2017-05-25 06:44] LABS: ALBUMIN 3.5 g/dL (3.5-5.0); CALCIUM 9.2 mg/dL (8.8-10.2); POTASSIUM 3.9 mmol/L (3.5-5.1); TOTAL BILIRUBIN 0.31 mg/dL (0.20-1.00); TOTAL PROTEIN 6.8 g/dL (6.3-8.3)
--- NOTE | 2017-05-25 07:29 | Diag Imaging Result Doc PS360 ---
CHEST-PORTABLE - 05/25/2017 INDICATION: respiratory failure TECHNIQUE: COMPARISON: 05/24/2017 FINDINGS: Stable right central line. Lung volumes are lower, now critically low. There is central bronchovascular crowding. No definite infiltrates. Heart size and pulmonary vascularity are normal. IMPRESSION: Low lung volumes but otherwise no acute abnormality. Electronically signed by Shan Lindsay 05/25/2017 7:26 AM
[2017-05-25] MEDS: SODIUM CHLORIDE 0.9% INJ PRN (08:08)
[2017-05-25] MEDS: HEPARIN SUBQ SCH ×2 (08:09→21:31)
[2017-05-25] MEDS: PROTONIX IV SCH (08:09)
[2017-05-25] MEDS: COREG PO SCH ×2 (08:10→21:31)
[2017-05-25] MEDS: MUCOMYST 20% INH SCH ×2 (08:10→20:20)
[2017-05-25] MEDS: MAXIPIME 1 GM/NS 1 GM/50 ML IVPB IV SCH ×2 (09:18→21:33)
--- NOTE | 2017-05-25 10:18 | PROGRESS NOTE ---
DATE: 05/25/2017 TIME SEEN: 819 SUBJECTIVE: Ms. Allen is resting quietly in bed. She has been nauseated. She has just received Zofran. She denies chest pain. OBJECTIVE: Vital Signs: Her most recent vital signs, temperature 97.5 degrees , blood pressure 117/60, heart rate 103, respirations 21. She is on 2 L nasal cannula. Last recorded saturation 100%. She has had 1066 in. She has had 3550 out. Laboratory Data: Sodium 138, potassium 3.9, chloride is 95, CO2 27, BUN 40, creatinine 2.1, glucose 282, anion gap 16, calcium 9.2, albumin 3.5. White count 3.24, hemoglobin 11.5, hematocrit 34.7, platelet count 143,000. Physical Examination: General: This is a 66-year-old, white female. She is in no acute distress. Skin: Warm and dry. HEENT: Normocephalic, atraumatic. Conjunctivae are pale. She has JOCELYN. Mucous membranes are dry. Neck: Supple. Trachea midline. No JVD. Cardiovascular: Regular rate and rhythm. She remains slightly tachycardic, more than likely related to her nausea. No murmur or gallop appreciated. Lungs: Clear to auscultation anteriorly. Equal excursion. She remains on O2. Abdomen: Round, soft, nontender. Positive bowel sounds. Extremities: Have no edema. No clubbing or cyanosis. Genitourinary: Patient has a Healy catheter in place. Adequate urine out. Neurological: She is more awake today. Alert and oriented x2. ASSESSMENT AND PLAN: 1. Acute kidney injury.No change in her renal function. Adequate UOP. 2. Electrolytes, acid-base balance, and anemia. These all remain stable. 3. Altered mental status. This has improved in the last 24-48 hours. Followed by the primary care team. Patient seen, data reviewed, discussed with Savannah Sheppard on 05/25/17. I agree with the above assessment and plan of care. rg Dictated by YING Bianchi for Sav Casas MD cc: YING Bianchi MD [facility]
[2017-05-25] MEDS ORDERED: HUMULIN R SUBQ SCH (11:00)
--- NOTE | 2017-05-25 11:38 | PROGRESS NOTE ---
DATE: 05/25/2017 SUBJECTIVE: This patient is alert and oriented x3. She has been complaining of nausea, and this happened with food and with the treatment as well. She has been placed on nausea medications. Today her blood sugar was elevated at 282, I placed this patient on sliding scale insulin to see how she does. OBJECTIVE: Vital Signs: Temperature 98.3 degrees, pulse 95, respiratory rate 21, blood pressure 151/63, O2 saturation 98 on 2 L of nasal cannula. HEENT: Head normocephalic. No trauma. PERRLA. Neck: Supple. No JVD. No masses. Central trachea. Chest: Clear to auscultation. No wheezing. No rales. Abdomen: Soft, nontender, nondistended. Extremities: No edema. No clubbing. No cyanosis. Neurological: She is alert and oriented x3. She is following commands. She moves all 4 extremities. LABORATORY: WBC 3.2, hemoglobin 11.5, hematocrit 34.7, platelets 143,000. Sodium 138, potassium 3.9, chloride 95. Bicarbonate 27, BUN 40, creatinine 2.1. Glucose 282, calcium 9.2, albumin 3.5. ASSESSMENT AND PLAN: 1. Altered mental status resolved likely secondary to severe hyperglycemia. 2. Hypoglycemia. Actually this patient has been having hyperglycemia. I will start this patient on sliding scale insulin and we will monitor this patient closely. 3. History of diskitis. She has been on terminal worker antibiotics and this was diagnosed with a biopsy at [facility]. Dr. Hill Turk put this patient on antibiotics and here in this hospital Infectious Disease Department is following this patient. 4. Nausea and vomiting, continue with nausea medication. 5. Diabetes mellitus, we will place this patient on a sliding scale insulin today. 6. CKD. This is getting acute on chronic kidney disease. This is getting better. Her creatinine before was around 1-1.3. But now it is around 2. Her urine output is better. Nephrology is on board. We will monitor. cc: Alexei Brown MD
[2017-05-25] MEDS: HUMULIN R SUBQ SCH ×3 (12:00→21:32)
[2017-05-25] MEDS: TYLENOL PO PRN ×2 (12:30→21:31)
--- NOTE | 2017-05-25 14:12 | PROGRESS NOTE ---
DATE: 05/25/2017 PRESENT ILLNESS: The patient has diskitis. She has been started on antibiotics on approximately April 13. MEDICATIONS: The patient is receiving currently clindamycin 600 mg IV every 8 hours and cefepime 1 g IV every 12 hours. PHYSICAL EXAMINATION: Vital Signs: Temperature is 97.4 degrees, pulse 84, respirations 15, blood pressure 123/69. General: The patient is alert. She is talking. She is able to ambulate. Lungs: Clear to auscultation. Cardiovascular: Regular heart rate. Abdomen: Soft and nontender. Extremities: The patient's PICC site in her arm is not erythematous or swollen. Back: Not tender. LAB AND X-RAY: CBC shows a white count of 3240, hemoglobin 11.5, and platelet count 143,000. Creatinine is 2.1. GFR is 23. Alkaline phosphatase is 216. ASSESSMENT AND PLAN: The patient has diskitis. I plan to continue the antibiotics originally ordered by Dr. Hill Turk. The patient has now approximately had, she was started roughly on April 12, and that would mean that she actually is very close if not already had enough to complete a 6 week treatment course which was what Dr. Turk had wanted for the patient. The patient's comorbidities include being elderly, recently having a stroke, diabetes mellitus, gastroesophageal reflux disease and a prior myocardial infarction. cc: Alex Rodas MD
[2017-05-25] MEDS: ISORDIL PO SCH (21:32)
[2017-05-26] MEDS: LASIX IV SCH (01:25)
[2017-05-26] MEDS: CLINDAMYCIN 600 MG/NS 600 MG/50 ML IVPB IV SCH ×3 (01:26→16:00)
[2017-05-26] MEDS: DUONEB (A & A) INH SCH ×7 (03:12→23:04)
[2017-05-26] MEDS: TYLENOL PO PRN ×2 (04:32→21:27)
[2017-05-26] MEDS: ZOFRAN IV PRN ×2 (04:32→08:19)
[2017-05-26] MEDS: HUMULIN R SUBQ SCH ×4 (06:16→21:27)
[2017-05-26 06:34] LABS: MANUAL DIFF NEEDED? NO
[2017-05-26 06:40] LABS: EOS# 0.21 X1000 (0.0-0.7); EOS% 7.3 % (0.0-10.0); HEMATOCRIT 34.6 % (37.0-47.0); HEMOGLOBIN 11.6 g/dL (12.0-16.0); LYMPH# 1.17 X1000 (1.2-3.4); LYMPH% 40.5 % (20.5-51.1); MCH 29.7 PG (27-31); MCHC 33.5 g/dL (33-37); MCV 88.5 FL (81-99); MONO# 0.46 X1000 (0.11-0.59); MONO% 15.9 % (1.7-9.3); MPV 10.7 FL (7.4-10.4); NEUT% 35.3 % (42.2-75.2); PLT 135 X1000 (130-400); RBC 3.91 XMIL (4.2-5.4)
[2017-05-26 06:54] LABS: ALBUMIN 3.9 g/dL (3.5-5.0); CALCIUM 8.7 mg/dL (8.8-10.2); POTASSIUM 3.9 mmol/L (3.5-5.1); TOTAL BILIRUBIN 0.3 mg/dL (0.20-1.00)
--- NOTE | 2017-05-26 07:34 | Diag Imaging Result Doc PS360 ---
EXAM: CHEST-PORTABLE HISTORY: respiratory failure TECHNIQUE: Portable AP COMPARISON: 05/25/2017 FINDINGS: No change in the right jugular line. No pneumothorax. The lungs are well expanded. The heart is borderline mildly prominent. The vessels are not distended. No consolidation. No pleural effusions identified. IMPRESSION: No interval change. Electronically signed by Miguel Menchaca 05/26/2017 7:32 AM
[2017-05-26] MEDS: MUCOMYST 20% INH SCH ×2 (08:00→19:25)
[2017-05-26] MEDS: SODIUM CHLORIDE 0.9% INJ PRN (08:05)
[2017-05-26] MEDS: PROTONIX IV SCH (08:05)
[2017-05-26] MEDS: COREG PO SCH ×2 (08:05→21:27)
[2017-05-26] MEDS: HEPARIN SUBQ SCH ×2 (08:06→21:26)
--- NOTE | 2017-05-26 08:29 | PROGRESS NOTE ---
DATE: 05/26/2017 PRESENT ILLNESS: The patient has diskitis. She has completed 6 weeks of treatment. I talked with Dr. Turk's office yesterday and Dr. Turk wants her to have 2 more weeks to complete an 8 week treatment course. I have put a consult in for [facility] who has been supplying the patient's home antibiotics, and told them that the patient will be discharged probably today and to they will continue the antibiotics for 2 more weeks. MEDICATIONS: The patient is on clindamycin 600 mg IV every 8 hours and cefepime 1 g IV every 12 hours. PHYSICAL EXAMINATION: Vital Signs: Temperature is 97.6 degrees pulse 80 respirations 18 blood pressure 109/56. Generally: The patient is alert she is talking. She did tell me she had some nausea during the night but she said this has been occurring ever since she has been put on the antibiotic. She is not having any diarrhea. Lungs: Clear to auscultation. Cardiovascular: Regular heart rate. Abdomen: Soft and nontender. Back: Back no swelling or tenderness. The patient's IV site he is not erythematous or swollen. LAB AND X-RAY: The CBC today showed a white count of 2890 hemoglobin 11.6, and platelet count 135,000 creatinine is 2.4. The GFR is 20. Chest x-ray showed clear lung maynard. ASSESSMENT AND PLAN: See above under present illness. The patient most likely will be discharged today. [facility] will supply her antibiotics. I have told the patient to call Dr. Turk's office for an appointment to see him as soon as the patient gets out the hospital. Dr. Turk will be resuming the ersponsibility for her antibiotics and treatment of her diskitis when she is discharged from our hospital. COMORBIDITIES: Include being elderly. Recently she had a stroke. She is a diabetic. She has gastroesophageal reflux disease and a prior myocardial infarction. cc: Alex Rodas MD [facility]
[2017-05-26] MEDS ORDERED: HUMULIN N SUBQ SCH ×2 (09:00→17:00)
--- NOTE | 2017-05-26 09:12 | PROGRESS NOTE ---
DATE: 05/26/2017 SUBJECTIVE: Ms. Allen is resting quietly in bed. She states that she is feeling just a little bit better, but she does remain nauseated. She states that her legs have been cramping during the night. She does appear in mild distress. OBJECTIVE: Her most recent vital signs: Temperature 97.4 degrees, blood pressure 125/67, heart rate 92, respirations 18. She is on 2 L nasal cannula. Last recorded saturation 100%. She has had 1787 In. She has had 2910 Out. She is in a negative fluid balance of 3-1/ 2 L in the last 24- 48 hours. LABORATORY DATA: Sodium 137, potassium 3.9, chloride 92, CO2 of 28. BUN 40, creatinine 2.4, glucose 290. Anion gap 17. Calcium 8.7, albumin 3.9, white count 2.89. Hemoglobin 11.6, hematocrit 34.6, with a platelet count of 135,000. PHYSICAL EXAMINATION: General: This is a 66-year-old white female. She is currently resting in bed. She is in mild distress secondary to nausea. Skin is warm and dry. HEENT: Normocephalic, atraumatic. Conjunctivae pale. She has JOCELYN. Mucous membranes are dry. Neck is supple. Trachea in midline. No JVD. Cardiovascular: Regular rate and rhythm. She is slightly tachycardic this morning. No murmur or gallop appreciated. Lungs are clear to auscultation anteriorly. Equal excursion on O2. Abdomen is round, soft, nontender. Positive bowel sounds. Extremities have no edema. No clubbing or cyanosis. Genitourinary: Patient has a Healy catheter. Adequate urine out. Patient is in a negative fluid balance. Neurologic: Alert and oriented x3. ASSESSMENT AND PLAN: 1. Acute kidney injury. The patient has slightly elevated creatinine today. She has been having leg cramps. She is in a negative fluid balance. We will start normal saline at 100 mL an hour. 2. Electrolytes. These all remain stable. 3. Acid-base balance. This is stable. 4. Anemia. This remains close to target. I would to thank you for allowing us to follow with this patient. Patient seen, data reviewed, discussed with Savannah Sheppard on 05/26/17. I agree with the above assessment and plan of care. rg Dictated by YING Bianchi for Sav Casas MD cc: YING Bianchi MD [facility]
[2017-05-26] MEDS ORDERED: SODIUM CHLORIDE 0.9% INJ PRN (11:01)
[2017-05-26] MEDS ORDERED: SODIUM CHLORIDE 0.9% 10 ML ONE (11:37)
[2017-05-26] MEDS: PHENERGAN IV PRN ×3 (11:37→21:26)
[2017-05-26] MEDS: MAXIPIME 1 GM/NS 1 GM/50 ML IVPB IV SCH ×2 (11:38→22:46)
[2017-05-26] MEDS: 1/2 NS 1,000 ML IV SCH ×3 (11:41→21:25)
--- NOTE | 2017-05-26 15:51 | PROGRESS NOTE ---
DATE: 05/26/2017 SUBJECTIVE: This patient is alert and oriented x3. She is still complaining of mild nausea; I have placed this patient on Phenergan. The blood sugar is still elevated. I have placed this patient back on insulin NPH, but I will decrease her dose. Hopefully, tomorrow this patient will be discharged. Dr. Rodas from Infectious Disease Department has already talked to Dr. Turk, and we will send this patient home with 2 more weeks of antibiotics. [facility] will take care of this. OBJECTIVE: Vital Signs: Temperature 97.6 degrees, pulse 86, respiratory rate 18, blood pressure 127/71, oxygen saturation 97% on 2 L of nasal cannula. HEENT: Head normocephalic. No trauma. PERRLA. Neck: Supple. No JVD. No masses. Central trachea. Chest: Clear to auscultation. No wheezing. No rales. Abdomen: Soft, nontender, nondistended. No hepatosplenomegaly. Extremities: No edema. No clubbing. No cyanosis. Neurological examination: The patient is alert and oriented x3. She is following commands. She moves all 4 extremities. LABORATORY: WBC 2.8, hemoglobin 11.6, hematocrit 34.6, platelet 135. Sodium 137, potassium 3.9, chloride 92, bicarbonate 28, BUN 40, creatinine 2.4, glucose 290, calcium 8.7, albumin 3.9. ASSESSMENT AND PLAN: 1. Altered mental status, resolved, likely secondary to severe hypoglycemia. 2. Hypoglycemia, resolved. Actually this patient had been having hyperglycemia, and I will start this patient on her home insulin, but a lower dose. 3. History of diskitis. Dr. Rodas already talked to Dr. Turk about this patient. We will continue antibiotics for 2 more weeks to complete a 8 weeks of treatment. Everything has been set up with [facility]. 4. Nausea and vomiting. Continue with nausea medication. 5. Diabetes mellitus. This patient is on sliding scale and also will restart her home medications. She has been on NPH 72 in the morning and 42 in the afternoon. I will continue with the NPH, but a lower dose, 40 q.a.m. and 20 q.p.m. 6. Chronic kidney disease. Her creatinine increased a little bit today and she has a negative balance. She was complaining of leg cramps, so Nephrology Department is following this patient and they put this patient on intravenous fluids. Will monitor. cc: Alexei Brown MD
--- NOTE | 2017-05-26 18:54 | PROGRESS NOTE ---
DATE: 05/26/2017 SUBJECTIVE: The patient is awake and alert. She is oriented. She reports she is going home soon. OBJECTIVE: Vital signs: Are stable. She is afebrile. Oxygen saturation is 100% on 2 L per nasal cannula. HEENT: Pupils are equal and reactive. Oropharynx is clear. Neck: Supple. Chest: Reveals good air entry bilaterally. No wheezing. No rhonchi. Cardiac exam: Distant heart sounds. Normal S1, normal S2. Abdomen: Obese and soft. Extremities: Reveal trace edema. LABORATORIES: White blood count 2.89, hemoglobin 11.6, platelet count 135,000. Chemistry: Sodium 137, potassium 3.9, chloride 92, bicarbonate 28, BUN 40, creatinine 2.4. IMPRESSION: A 66-year-old with: 1. Obesity. 2. Altered mental status which has resolved. 3. Extensive tobacco history. 4. Chronic obstructive pulmonary disease with an abnormal CAT scan. Initial CAT scan revealed mucus with partial occlusion of the trachea. This resolved on a followup evaluation. However, the followup scan did reveal a solitary pulmonary nodule in the right middle lobe. RECOMMENDATIONS: 1. Evaluate for oxygen at time of discharge. 2. Continue albuterol and Atrovent bronchodilators at the time of discharge. 3. Recommend noncontrast CT scan of the thorax in 2-3 months to re-evaluate the subcentimeter solitary pulmonary nodule in the right lung. cc: MD Betsy Rivera MD
[2017-05-26] MEDS: ISORDIL PO SCH (21:27)
[2017-05-27] MEDS: CLINDAMYCIN 600 MG/NS 600 MG/50 ML IVPB IV SCH ×2 (01:35→08:29)
[2017-05-27] MEDS: DUONEB (A & A) INH SCH ×2 (03:31→07:44)
[2017-05-27 05:59] LABS: MANUAL DIFF NEEDED? NO
[2017-05-27] MEDS: HUMULIN R SUBQ SCH (06:06)
[2017-05-27 06:11] LABS: BASO% 1.2 % (0.0-0.8); EOS# 0.19 X1000 (0.0-0.7); EOS% 5.7 % (0.0-10.0); HEMATOCRIT 33.6 % (37.0-47.0); HEMOGLOBIN 11.5 g/dL (12.0-16.0); LYMPH# 1.32 X1000 (1.2-3.4); LYMPH% 39.4 % (20.5-51.1); MCH 29.7 PG (27-31); MCHC 34.2 g/dL (33-37); MCV 86.8 FL (81-99); MONO# 0.53 X1000 (0.11-0.59); MONO% 15.8 % (1.7-9.3); MPV 10.7 FL (7.4-10.4); NEUT% 37.9 % (42.2-75.2); PLT 138 X1000 (130-400); RBC 3.87 XMIL (4.2-5.4)
[2017-05-27 06:41] LABS: ALBUMIN 3.4 g/dL (3.5-5.0); POTASSIUM 3.6 mmol/L (3.5-5.1); TOTAL BILIRUBIN 0.27 mg/dL (0.20-1.00); TOTAL PROTEIN 6.7 g/dL (6.3-8.3)
[2017-05-27] MEDS: PHENERGAN IV PRN (06:52)
--- NOTE | 2017-05-27 07:33 | Diag Imaging Result Doc PS360 ---
CHEST-PORTABLE - 05/27/2017 INDICATION: respiratory failure TECHNIQUE: COMPARISON: 05/26/2017 FINDINGS: Stable right central line. The lungs are clear and the heart size is normal. No pneumothorax or pleural effusion. IMPRESSION: No acute disease or change from prior. Electronically signed by Shan Lindsay 05/27/2017 7:31 AM
[2017-05-27] MEDS: MUCOMYST 20% INH SCH (07:51)
[2017-05-27] MEDS ORDERED: HUMULIN N SUBQ SCH (08:04)
[2017-05-27] MEDS: 1/2 NS 1,000 ML IV SCH (08:29)
[2017-05-27] MEDS: PROTONIX IV SCH (08:30)
[2017-05-27] MEDS: HEPARIN SUBQ SCH (08:30)
[2017-05-27] MEDS: COREG PO SCH (08:30)
[2017-05-27] MEDS: HUMULIN N SUBQ SCH ×2 (08:31→09:00)
--- NOTE | 2017-05-27 09:15 | PROGRESS NOTE ---
DATE: 05/27/2017 SUBJECTIVE: The patient tells me that she will be discharged today. She still has some nausea but she is able to eat without difficulty. OBJECTIVE: Vital Signs: Blood pressure 118/96, heart rate 101m respiration 18, afebrile. Intake 2.5 L. Output 600 mL. General: No acute distress. Skin: Warm and dry. HEENT: Conjunctivae are pink. Pupils are equal. Neck: Neck veins are not distended. Heart: Regular without gallops or murmurs. Lungs: Equal without crackles or wheezes. Abdomen: Obese and soft. Bowel sounds are present. Extremities: Have no edema, clubbing, or cyanosis. IMPRESSION: 1. Acute kidney injury. Her creatinine is modestly improved and urine output is acceptable. Certainly okay for discharge from my perspective. We will arrange for outpatient followup in our office. 2. Electrolytes/acid base/anemia, all in target. 3. Blood pressure in target. cc: Sav Casas MD
[2017-05-27] MEDS ORDERED: PHENERGAN PO PRN (09:40)
--- NOTE | 2017-05-27 10:14 | PROGRESS NOTE ---
DATE: 05/27/2017 PRESENT ILLNESS: The patient is being treated for diskitis. MEDICATIONS: The patient is receiving clindamycin 600 mg IV every 8 hours and cefepime 1 g IV every 12 hours. The cefepime dose has been reduced because of the patient's renal failure. PHYSICAL EXAMINATION: Vital Signs: Temperature is 97.8 degrees, pulse 101, respirations 18, blood pressure 118/96. General: This patient looks much better than when she came in. She is alert and talking. She does say that she has nausea, but she tells me that this is because of her antibiotics which she was receiving before she came in the hospital. It is much better since Dr. Chang has been given the patient Phenergan. Lungs: Clear to auscultation. Cardiovascular: Regular heart rate. Abdomen: Soft and nontender. Back: No swelling or erythema. The patient's IV site is not erythematous or tender either. LAB AND X-RAY: The patient's CBC today shows a white count of 3350, hemoglobin 11.5, platelet count 138,000. Creatinine is 2.3. The GFR is 21. Chest x-ray shows no acute disease. ASSESSMENT AND PLAN: The patient has diskitis and she is on clindamycin and cefepime. She will be seeing Dr. Hill Turk as soon as she gets discharged, and he will be managing her antibiotics. Dr. Schulz saw the patient and he noted that the patient has on CAT scan a solitary nodule, and he has made recommendations for how that should be managed. I will not be seeing the patient anymore; I was just seeing her for her infectious disease, and that now will be turned over to Dr. Turk, and Dr. Schulz is managing the pulmonary nodule in the right lung. Patient's comorbidities main one is that she had surgery on her back which is where the diskitis originated from. The patient also is elderly, she has had a stroke, she is diabetic, she has gastroesophageal reflux disease and a prior myocardial infarction. cc: Alex Rodas MD
[2017-05-27] MEDS: MAXIPIME 1 GM/NS 1 GM/50 ML IVPB IV SCH (10:55)
[2017-05-27 11:09] VITALS: BP 112/67
--- NOTE | 2017-05-27 15:43 | DISCHARGE SUMMARY ---
ADMISSION DATE: 05/20/2017 DISCHARGE DATE: 05/27/2017 CONSULTATIONS: 1. Carlyle Schulz MD with Pulmonology. 2. Sav Casas MD with Nephrology. 3. Alex Rodas MD with Infectious Disease. PERTINENT PROCEDURES: 1. Head CT showed no visible acute intracranial abnormality. No hemorrhage or mass effect. 2. Abdomen and pelvis CT showed no evidence of PE, evidence of pulmonary edema, congestive heart failure, mild hilar and mediastinal adenopathy, questionable stenosis of upper thoracic trachea versus transitory appearance during respiration, hepatosplenomegaly, mild retroperitoneal adenopathy, right renal angiolipoma. No hydronephrosis. No evidence of abdominal aortic aneurysm. L2 through 3 diskitis on 04/19/2017 CT lumbar spine. No bowel obstruction. No free air. No substantial free fluid. Fat containing umbilical hernia, a 1.8 cm calcified uterine fibroid, a 3.5 x 2.7 cm heterogeneous structure adjacent to the right posterior lower uterine segment of uncertain significance. 3. Echocardiogram showed EF of 40%. Mild hypokinesis, akinesis of the apical anterior septal region. Akinesis of the very apex of the left ventricle. 4. Left foot x-ray showed no evidence of acute fracture, dislocation, erosion of the 1st metatarsophalangeal joint which may relate to gout. 5. Chest CT showed focal tracheal narrowing significantly less prominent than on previous study. Suggests mild interstitial edema. Focal opacity in the periphery of the left upper lobe probably represents a small inflammatory focus. Stable noncalcified nodule in the right middle lobe. DISCHARGE DIAGNOSES: 1. Metabolic encephalopathy secondary to severe hypoglycemia resolved. 2. Hypoglycemia resolved. 3. Hyperglycemia. Patient has been initiated back on home insulin but at lower dose. 4. History of diskitis followed by Dr. Alex Rodas. She will continue to follow up with Dr. Turk at discharge to complete her 8 week course of IV antibiotics. She has already been set up with [facility]. 5. Nausea, vomiting. She will continue on her home medications. 6. Acute kidney injury. Modestly improved urine output. Acceptable electrolytes, acid-based anemia and blood pressure all in target. Will follow up with Dr. Casas on an outpatient basis in 1 month. 7. Chronic kidney disease stage 3 stable. 8. Pulmonary edema, congestive heart failure stable. HOSPITAL COURSE: Ms. Allen is a 66-year-old, female with a past medical history of type 2 diabetes mellitus, coronary artery disease, hypothyroidism, fibromyalgia , gout, psoriasis, COPD, questionable congestive heart failure. Last seen in our ED on April 19 for diskitis and was transferred to [facility] where she spent 11 days and received IV treatment. She has been on IV cefepime and vancomycin up until the day of her admission. Report from her stated that the patient was very confused and lethargic, that she had been having diarrhea since the onset of taking her antibiotics, and had taken a turn for the worse for a week. Her stools were dark but not bloody. No vomiting or abdominal pain. He did notice that she was getting more short of breath but on the day of her admission it had gotten so bad that she was unable to walk and she fell down 3 times and her gait was very ataxic. He called EMS when he could not arouse his . She was very lethargic and confused. When EMS arrived they could not detect her blood sugar. They gave her 1-2 ounces of D50. Despite that she was still lethargic and somnolent. In the ED the patient was still lethargic and barely responsive. She was on a BiPAP machine. Her blood sugars were in the 120-180 range. She continued to be lethargic. He states that she has been compliant with all medications. She was found to have a white count of 3000, hemoglobin and hematocrit of 10 and 32, platelets 125, sodium 135, potassium 5.6, BUN 46, creatinine 2.6 that shows an increase of 1.2 less than a week ago. Urinalysis was unremarkable. Her lactate was normal. CT of the abdomen and chest noted no evidence of PE, hepatosplenomegaly. Did have L2 through L3 diskitis, uterine fibroid, question of tracheal stenosis. It did note that the patient had evidence of pulmonary edema and congestive heart failure. Chest x-ray also confirmed the same findings. Head CT did not show anything acute. She was admitted for metabolic encephalopathy as well as acute kidney injury and severe hypoglycemia. All nephrotoxic drugs were held. Nephrology was consulted. Dr. Schulz was consulted for acute hypoxemic and hypercapnic respiratory failure. He agreed to continue with her current antibiotics as per her recent infectious disease. He agreed with continuous glucose infusion given her hypoglycemia and as per the 's wishes, the made her DNR level 1. She was given IV fluids as well as diuretics. Her creatinine did improve. She was making good urine. They were able to get her blood sugars up and get her off the continuous drip for her blood glucose. She was more alert and awake. The patient had to be put back on sliding scale insulin due to hyperglycemia. She was working with Physical Therapy. She was able to the eat. She was having bouts of nausea. She was still having elevated blood sugars. They were slowly adding back her insulin at lower doses. The patient did have a follow- up CT scan because her initial scan revealed mucus with partial occlusion of her trachea. That has resolved on this follow-up scan, however, the follow-up scan did reveal a solitary pulmonary nodule in the right middle lobe. Dr. Schulz had her evaluated for oxygen at the time of her discharge. Continue albuterol and Atrovent dilators at home. He recommends a noncontrasted CT scan of the thorax in 2-3 months to re-evaluate the subcentimeter solitary pulmonary nodule in the right lung base. She is stable for discharge today. She will continue to follow up with Dr. Turk with Infectious Disease for her diskitis. She was previously set up for that with [facility] and will continue with that as well as home health. We will continue with her home insulin but at lower dosages. VITAL SIGNS AT TIME OF DISCHARGE: Temperature 98 degrees, heart rate 84, respirations 20, blood pressure 112/67, O2 is 100% on 2 L nasal cannula. DISCHARGE DIET: GI soft. DISCHARGE MEDICATIONS: 1. Zyloprim 300 mg p.o. q.a.m. 2. Xanax 1 mg p.o. at bedtime. 3. Aspirin 81 mg p.o. b.i.d. 4. Calcium citrate 630 mg daily. 5. Coreg 25 mg p.o. b.i.d. 6. Maxipime 2 g IV q.12 hours. 7. Clindamycin 600 mg IV t.i.d. 8. Clobetasol emollient 0.05% cream, 1 application topical b.i.d. p.r.n. 9. Flexeril 10 mg p.o. at bedtime. 10. Sinequan 100 mg p.o. daily. 11. Cymbalta 60 mg p.o. daily. 12. Folic acid 800 mg daily. 13. Lasix 20 mg p.o. daily. 14. Neurontin 300 mg p.o. 4 times a day. 15. Humulin N 55 units subcutaneous q.a.m. 16. Humulin N 35 units subcutaneous with supper. 17. Isosorbide dinitrate 20 mg p.o. at bedtime. 18. Lamictal 100 mg p.o. at bedtime. 19. Centrum Silver 1 each p.o. daily. 20. [place]-3 Fish Oil 1200 mg soft gel p.o. b.i.d. 21. Prilosec 20 mg p.o. daily. 22. Percocet 7.5/325, 1 each p.o. t.i.d. 23. Phenergan 25 mg p.o. q.6 hours p.r.n. 24. Simvastatin 40 mg p.o. at bedtime. FOLLOWUP: 1. Ms. Allen is being discharged home with home health as well as [facility] for her IV infusions. 2. She will continue to follow up with Dr. Turk her Infectious Disease doctor. 3. She will follow up with Dr. Casas in 1 month. 4. She can follow up with her primary care physician in 1-2 weeks. 5. She can return to the ED for any worsening of symptoms. 6. She is to take all her medications as prescribed. DISCHARGE TIME: 35 minutes. Dictated by YING Pritchard for Alexei Brown MD cc: MD Betsy Singh MD MTDD
== END 2017-05-27 12:25 | disposition home health service (06) ==
LOC: ED 19:09 → SUATTDRO 23:52 → ICU 23:52 → 4N 05-24 12:02
PROVIDERS: ATTEND Internal Medicine